=== PATIENT | female | born 1985 | race Caucasian/White ===

== ENCOUNTER 2019-02-21 13:17 | Emergency (ER) | payer OTHER ==
--- NOTE | 2019-02-21 16:14 | EDM.PDOC ---
<Yasmin Nixon - Last Filed: 02/21/19 17:40> ED HPI GENERAL MEDICAL PROBLEM - General Chief Complaint: Lower Extremity Injury/Pain Stated Complaint: CALF PAIN Time Seen by Provider: 02/21/19 16:00 Source of Information: Reports: Patient History Limitations: Reports: No Limitations - History of Present Illness INITIAL COMMENTS - FREE TEXT/NARRATIVE: Patient arrives to ER with CC of increased pain and swelling to right foot/ ankle. Patient has an extensive surgical history to this foot, including a bone graft that was rejected. Patient is set to see orthopedic doctor next week for reevaluation of patient's care plan. Patient states that for the past 4 days she has been having a significant increase in her pain, not associated with any particular activity as well as edema that is not precipitated by any certain activity or dependent position. Patient reports that her pain is not being adequately controlled by her currently prescribed Oxy/APAP 5/325 mg prescription. Patient denies any fever, chills, redness, or new onset trauma to this foot. Patient does have previous history of DVT to her right lower extremity. Patient did report her symptoms to her orthopedic doctor, however she was unable to see her right away and directed her to the emergency room. Onset Date: 02/18/19 Location: Reports: Lower Extremity, Right (foot/ankle) Quality: Reports: Sharp Severity: Severe Improves with: Reports: None Worsens with: Reports: Movement Context: Reports: Other (s/p multiple surgical corrections) Associated Symptoms: Reports: No Other Symptoms Right Foot Pain Score (Numeric/FACES): 9 - Related Data Allergies Allergy/AdvReac Type Severity Reaction Status Date / Time doxycycline Allergy Rash Verified 02/21/19 15:38 Home Meds: Home Meds SUMAtriptan 100 mg PO ONETIME 04/21/18 [History] oxyCODONE HCl/Acetaminophen [Oxycodone-Acetaminophen 5-325] 1 tab PO ASDIRECTED PRN 04/21/18 [History] Gabapentin [Neurontin] 300 mg PO TID 02/21/19 [History] Sertraline [Zoloft] 100 mg PO DAILY 02/21/19 [History] busPIRone [Buspar] 10 mg PO BID 02/21/19 [History] Past Medical History HEENT History: Reports: Impaired Vision Other HEENT History: wears glasses Cardiovascular History: Reports: Blood Clots/VTE/DVT Respiratory History: Reports: None Gastrointestinal History: Reports: None Genitourinary History: Reports: None 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 Musculoskeletal History: Reports: Back Pain, Chronic Neurological History: Reports: Migraines Psychiatric History: Reports: Anxiety Endocrine/Metabolic History: Reports: Obesity/BMI 30+ Hematologic History: Reports: None Immunologic History: Reports: None Oncologic (Cancer) History: Reports: None Dermatologic History: Reports: None - Infectious Disease History Infectious Disease History: Reports: Chicken Pox - Past Surgical History Head Surgeries/Procedures: Reports: None Musculoskeletal Surgical History: Reports: Other (See Below) Other Musculoskeletal Surgeries/Procedures:: 5 surgeries on right foot Social & Family History - Family History Family Medical History: Noncontributory - Tobacco Use Smoking Status *Q: Current Every Day Smoker Years of Tobacco use: 14 Packs/Tins Daily: 0.2 - Caffeine Use Caffeine Use: Reports: Coffee, Soda - Recreational Drug Use Recreational Drug Use: No - Living Situation & Occupation Living situation: Reports: Single Occupation: Employed Review of Systems - Review of Systems Review Of Systems: ROS reveals no pertinent complaints other than HPI. ED EXAM, GENERAL - Physical Exam Exam: See Below Exam Limited By: No Limitations General Appearance: Alert, WD/WN, No Apparent Distress Respiratory/Chest: No Respiratory Distress, Lungs Clear, Normal Breath Sounds, No Accessory Muscle Use, Chest Non-Tender Cardiovascular: Normal Peripheral Pulses, Regular Rate, Rhythm, No Edema, No Gallop, No JVD, No Murmur, No Rub GI/Abdominal: Normal Bowel Sounds, Soft, Non-Tender, No Organomegaly, No Distention, No Abnormal Bruit, No Mass Back Exam: Normal Inspection, Full Range of Motion, NT Extremities: No Pedal Edema, Normal Capillary Refill, Leg Pain, Other (CMS intact). No: Normal Inspection (moderate amount of edema to generalized right foot/ankle), Normal Range of Motion (decreased ROM to right foot d/t pain), Non- Tender Neurological: Alert, Oriented, CN II-XII Intact, Normal Cognition, Normal Gait, Normal Reflexes, No Motor/Sensory Deficits Psychiatric: Tearful Skin Exam: Warm, Dry, Intact, Normal Color, No Rash Course - Vital Signs Last Recorded V/S: Last Vital Signs Temp 99.3 F 02/21/19 15:30 Pulse 91 02/21/19 15:30 Resp 18 02/21/19 15:30 BP 130/86 02/21/19 15:30 Pulse Ox 100 02/21/19 15:30 - Orders/Labs/Meds Orders: Active Orders 24 hr Category Date Time Status Foot Comp Min 3V Rt [CR] Urgent Exams 02/21/19 16:06 Taken Venous Doppler Lwr Ext Rt [US] Urgent Exams 02/21/19 16:08 Taken Meds: Medications Discontinued Medications Generic Name Dose Route Start Last Admin Trade Name Reji PRN Reason Stop Dose Admin Ketorolac Tromethamine 60 mg 02/21/19 17:19 02/21/19 17:26 Toradol IM 02/21/19 17:20 60 mg ONETIME ONE Administration - Radiology Interpretation Free Text/Narrative:: 3V Right Foot XRAY: Postoperative changes of the second and third metatarsals present with plate and screws in place. No evidence of complications. There is no evidence of acute fracture. Mild soft tissue swelling is present. See rad report. Right Venous Ultrasound: No evidence of acute DVT. Prominent lymph node noted within the right inguinal canal. See rad report. Departure - Departure Time of Disposition: 17:36 Disposition: Home, Self-Care 01 Condition: Good Clinical Impression: Soft tissue injury of right lower leg Qualifiers: Encounter type: initial encounter Qualified Code(s): S89.91XA - Unspecified injury of right lower leg, initial encounter - Discharge Information *PRESCRIPTION DRUG MONITORING PROGRAM REVIEWED*: No *COPY OF PRESCRIPTION DRUG MONITORING REPORT IN PATIENT DESI: No Instructions: Contusion, [id number] Forms: ED Department Discharge Additional Instructions: You had an XRAY and Ultrasound done on your right lower extremity today in the emergency room. Both of these images came back negative for any acute concern. There is evidence of some soft tissue swelling. You were given 60 mg IM Toradol in the emergency room as well. Rest, Ice, Compression, Elevation of the affected extremity. You can fiber picker a compression stocking at [facility] to assist in the swelling. Continue to use your prescribed pain medication as you have been directed per prescribing provider. *Do not drive while under the influence of this medication * Attend your follow up appointment that is scheduled with your orthopedic doctor. <Ganga Rodriguez - Last Filed: 02/21/19 17:41> Course - Re-Assessments/Exams Free Text/Narrative Re-Assessment/Exam: 02/21/19 17:41 I personally performed or re-performed the physical examination and medical decision making. I have verified all student documentation or findings, including history, physical exam and/or medical decision making.
[2019-02-21] MEDS ORDERED: Ketorolac 30 MG/ML SDV IM ONE (17:19)
== END 2019-02-21 17:48 | disposition home or self-care (01) ==
LOC: DL.ED 13:17
DX: S89.91XA Unspecified injury of right lower leg, initial encounter (principal); F41.9 Anxiety disorder, unspecified; E66.9 Obesity, unspecified; F17.210 Nicotine dependence, cigarettes, uncomplicated; Z86.718 Personal history of other venous thrombosis and embolism; Z88.8 Allergy status to other drugs, medicaments and biological substances; Z79.899 Other long term (current) drug therapy; X58.XXXA Exposure to other specified factors, initial encounter
CPT/HCPCS: 73630; 93971; 96372; 99284; J1885

== ENCOUNTER 2019-05-31 13:06 | Emergency (ER) | payer OTHER ==
--- NOTE | 2019-05-31 13:40 | EDM.PDOC ---
ED HPI GENERAL MEDICAL PROBLEM - General Chief Complaint: Headache Stated Complaint: MIGRAINE Time Seen by Provider: 05/31/19 13:40 Source of Information: Reports: Patient, RN, RN Notes Reviewed History Limitations: Reports: No Limitations - History of Present Illness INITIAL COMMENTS - FREE TEXT/NARRATIVE: Pt to ER with c/o migraine headache. She states she has a history of migraines and has been dealing with this headache the whole past week. States she has been in to the clinic and gotten shots of Toradol and IV fluids, and has been taking Sumatriptan at home without relief. She states it has gotten to the point that she cannot function. Patient admits to aura, nausea, light and sound sensitivity. States she does have a call in to her neurologist but has not heard back. Denies chances of . 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 NURSE: Reports: Acetaminophen, NSAIDS, Other Medication(s) Headache Pain Score (Numeric/FACES): 9 - Related Data Allergies Allergy/AdvReac Type Severity Reaction Status Date / Time doxycycline Allergy Rash Verified 05/31/19 13:14 Home Meds: Home Meds SUMAtriptan 100 mg PO ONETIME 04/21/18 [History] Gabapentin [Neurontin] 300 mg PO TID 02/21/19 [History] Sertraline [Zoloft] 150 mg PO DAILY 02/21/19 [History] busPIRone [Buspar] 10 mg PO BID 02/21/19 [History] Topiramate [Topamax] 25 mg PO DAILY 05/22/19 [History] Metoclopramide HCl [Reglan] 10 mg PO Q4H PRN 05/31/19 [History] Past Medical History HEENT History: Reports: Impaired Vision Other HEENT History: wears glasses Cardiovascular History: Reports: Blood Clots/VTE/DVT Respiratory History: Reports: None Gastrointestinal History: Reports: None Genitourinary History: Reports: None 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 Musculoskeletal History: Reports: Back Pain, Chronic Neurological History: Reports: Migraines Psychiatric History: Reports: Anxiety Endocrine/Metabolic History: Reports: Obesity/BMI 30+ Hematologic History: Reports: None Immunologic History: Reports: None Oncologic (Cancer) History: Reports: None Dermatologic History: Reports: None - Infectious Disease History Infectious Disease History: Reports: Chicken Pox - Past Surgical History Head Surgeries/Procedures: Reports: None Musculoskeletal Surgical History: Reports: Other (See Below) Other Musculoskeletal Surgeries/Procedures:: 5 surgeries on right foot Social & Family History - Family History Family Medical History: Noncontributory - Tobacco Use Smoking Status *Q: Current Some Day Smoker Years of Tobacco use: 2 Packs/Tins Daily: 0.1 - Caffeine Use Caffeine Use: Reports: Soda - Recreational Drug Use Recreational Drug Use: No - Living Situation & Occupation Living situation: Reports: Single Occupation: Employed ED ROS GENERAL - Review of Systems Review Of Systems: ROS reveals no pertinent complaints other than HPI. - Physical Exam Exam: See Below Exam Limited By: No Limitations General Appearance: Alert, WD/WN, Moderate Distress Eye Exam: Bilateral Eye: EOMI, Normal Inspection Ears: Normal External Exam, Hearing Grossly Normal Nose: Normal Inspection Throat/Mouth: Normal Inspection, Normal Voice, No Airway Compromise Head Exam: Atraumatic, Normocephalic Neck: Normal Inspection, Supple, Non-Tender, Full Range of Motion Respiratory/Chest: No Respiratory Distress, Lungs Clear, Normal Breath Sounds, No Accessory Muscle Use, Chest Non-Tender Cardiovascular: Normal Peripheral Pulses, Regular Rate, Rhythm, No Edema, No Gallop, No JVD, No Murmur, No Rub GI/Abdominal: Normal Bowel Sounds, Soft, Non-Tender, No Organomegaly, No Distention, No Abnormal Bruit, No Mass (Female) Exam: Deferred Rectal (Female) Exam: Deferred Neuro Exam (Abbreviated): Alert, Oriented, CN II-XII Intact, Normal Cognition, Normal Gait, Normal Reflexes, No Motor/Sensory Deficits Back Exam: Normal Inspection, Full Range of Motion Extremities: Normal Inspection, Normal Range of Motion, Non-Tender, No Pedal Edema, Normal Capillary Refill Psychiatric: Normal Affect, Depressed Mood, Tearful Skin Exam: Warm, Dry, Intact, Normal Color, No Rash Course - Vital Signs Last Recorded V/S: Last Vital Signs Temp 97.1 F 05/31/19 13:16 Pulse 88 05/31/19 13:16 Resp 16 05/31/19 13:16 BP 132/91 H 05/31/19 13:16 Pulse Ox 100 05/31/19 13:16 - Orders/Labs/Meds Orders: Active Orders 24 hr Category Date Time Status Peripheral IV Care [RC] . DIRECTED Care 05/31/19 13:45 Active Sodium Chloride 0.9% [Saline Flush] Med 05/31/19 13:44 Active 10 ml FLUSH ASDIRECTED PRN Peripheral IV Insertion Adult [OM.PC] Stat Oth 05/31/19 13:44 Ordered Medication Orders Sodium Chloride (Saline Flush) 10 ml FLUSH ASDIRECTED PRN PRN Reason: Keep Vein Open Last Admin: 05/31/19 14:47 Dose: 10 ml Admin: 05/31/19 13:54 Dose: 10 ml Meds: Medications Generic Name Dose Route Start Last Admin Trade Name Freq PRN Reason Stop Dose Admin Sodium Chloride 10 ml 05/31/19 13:44 05/31/19 14:47 Saline Flush FLUSH 10 ml ASDIRECTED PRN Administration Keep Vein Open Discontinued Medications Generic Name Dose Route Start Last Admin Trade Name Freq PRN Reason Stop Dose Admin Butorphanol Tartrate 2 mg 05/31/19 14:33 05/31/19 14:45 Stadol IVPUSH 05/31/19 14:34 2 mg ONETIME ONE Administration Diphenhydramine HCl 25 mg 05/31/19 13:44 05/31/19 13:54 Benadryl IVPUSH 05/31/19 13:45 25 mg ONETIME ONE Administration Sodium Chloride 1,000 mls @ 999 mls/hr 05/31/19 13:44 05/31/19 13:54 Normal Saline IV 05/31/19 14:44 999 mls/hr .BOLUS ONE Administration Ondansetron HCl 4 mg 05/31/19 13:44 05/31/19 13:54 Zofran IV 05/31/19 13:45 4 mg ONETIME ONE Administration Promethazine HCl 25 mg 05/31/19 14:33 05/31/19 14:43 Phenergan IM 05/31/19 14:34 25 mg ONETIME ONE Administration - Re-Assessments/Exams Free Text/Narrative Re-Assessment/Exam: 05/31/19 14:35 Patient states the Benadryl and Zofran have not worked at all. Patient states she feels she is going to throw up. Departure - Departure Time of Disposition: 15:09 Disposition: Home, Self-Care 01 Condition: Fair Clinical Impression: Migraine - Discharge Information *PRESCRIPTION DRUG MONITORING PROGRAM REVIEWED*: No *COPY OF PRESCRIPTION DRUG MONITORING REPORT IN PATIENT DESI: No Instructions: Migraine Headache, [id number], Recurrent Migraine Headache, [id number] Forms: ED Department Discharge Additional Instructions: Drink plenty of fluids Continue using home meds as directed Follow up with your primary care facility and neurology - My Orders Last 24 Hours: My Active Orders 05/31/19 13:44 Sodium Chloride 0.9% [Saline Flush] 10 ml FLUSH ASDIRECTED PRN Peripheral IV Insertion Adult [OM.PC] Stat 05/31/19 13:45 Peripheral IV Care [RC] . DIRECTED - Assessment/Plan Last 24 Hours: My Active Orders 05/31/19 13:44 Sodium Chloride 0.9% [Saline Flush] 10 ml FLUSH ASDIRECTED PRN Peripheral IV Insertion Adult [OM.PC] Stat 05/31/19 13:45 Peripheral IV Care [RC] . DIRECTED
[2019-05-31] MEDS ORDERED: Ondansetron 4 MG/2 ML SDV IV ONE (13:44)
[2019-05-31] MEDS ORDERED: diphenhydrAMINE 50 MG/ML SDV IVPUSH ONE (13:44)
[2019-05-31] MEDS ORDERED: Sodium Chloride 0.9% 1,000 ML IV ONE (13:44)
[2019-05-31] MEDS: Sodium Chloride 0.9% 10 ML Syringe FLUSH PRN ×2 (13:54→14:47)
[2019-05-31] MEDS ORDERED: Butorphanol 2 MG/ML SDV IVPUSH ONE (14:33)
[2019-05-31] MEDS ORDERED: Promethazine 25 MG/ML SDV IM ONE (14:33)
== END 2019-05-31 15:17 | disposition home or self-care (01) ==
LOC: DL.ED 13:06
DX: G43.909 Migraine, unspecified, not intractable, without status migrainosus (principal); E66.9 Obesity, unspecified; F41.9 Anxiety disorder, unspecified; F17.210 Nicotine dependence, cigarettes, uncomplicated; Z79.899 Other long term (current) drug therapy
CPT/HCPCS: 96361; 96372; 96374; 96375; 99283; J0595; J1200; J2405; J2550; J7030

== ENCOUNTER 2019-05-31 19:47 | Emergency (ER) | payer OTHER ==
[2019-05-31] MEDS ORDERED: LORazepam 1 MG Tab PO ONE (19:48)
[2019-05-31] MEDS ORDERED: Butorphanol 2 MG/ML SDV IM ONE (20:27)
[2019-05-31] MEDS ORDERED: Promethazine 25 MG/ML SDV IM ONE (20:27)
--- NOTE | 2019-05-31 20:32 | EDM.PDOC ---
ED HPI GENERAL MEDICAL PROBLEM - General Chief Complaint: Headache Stated Complaint: MIGRAINE Time Seen by Provider: 05/31/19 20:28 Source of Information: Reports: Patient History Limitations: Reports: No Limitations - History of Present Illness INITIAL COMMENTS - FREE TEXT/NARRATIVE: was here earlier and usually if able to sleep her migraine cycle will break but tis time not working well. has Neuro appt. next week. Headache Pain Score (Numeric/FACES): 9 - Related Data Allergies Allergy/AdvReac Type Severity Reaction Status Date / Time doxycycline Allergy Rash Verified 05/31/19 20:19 Home Meds: Home Meds SUMAtriptan 100 mg PO ONETIME 04/21/18 [History] Gabapentin [Neurontin] 300 mg PO TID 02/21/19 [History] Sertraline [Zoloft] 150 mg PO DAILY 02/21/19 [History] busPIRone [Buspar] 10 mg PO BID 02/21/19 [History] Topiramate [Topamax] 25 mg PO DAILY 05/22/19 [History] Metoclopramide HCl [Reglan] 10 mg PO Q4H PRN 05/31/19 [History] Past Medical History HEENT History: Reports: Impaired Vision Other HEENT History: wears glasses Cardiovascular History: Reports: Blood Clots/VTE/DVT Respiratory History: Reports: None Gastrointestinal History: Reports: None Genitourinary History: Reports: None 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 History: Reports: 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 Musculoskeletal History: Reports: Back Pain, Chronic Neurological History: Reports: Migraines Psychiatric History: Reports: Anxiety Endocrine/Metabolic History: Reports: Obesity/BMI 30+ Hematologic History: Reports: None Immunologic History: Reports: None Oncologic (Cancer) History: Reports: None Dermatologic History: Reports: None - Infectious Disease History Infectious Disease History: Reports: Chicken Pox - Past Surgical History Head Surgeries/Procedures: Reports: None Musculoskeletal Surgical History: Reports: Other (See Below) Other Musculoskeletal Surgeries/Procedures:: 5 surgeries on right foot Social & Family History - Family History Family Medical History: Noncontributory - Tobacco Use Smoking Status *Q: Light Tobacco Smoker Years of Tobacco use: 1 Packs/Tins Daily: 0.1 Tobacco Use Comment: has a rare cigarette, states is not a daily smoker Second Hand Smoke Exposure: Yes - Caffeine Use Caffeine Use: Reports: Soda - Recreational Drug Use Recreational Drug Use: No - Living Situation & Occupation Living situation: Reports: Single Occupation: Employed ED ROS GENERAL - Review of Systems Review Of Systems: ROS reveals no pertinent complaints other than HPI. - Physical Exam Exam: See Below Exam Limited By: No Limitations General Appearance: Alert, WD/WN, Mild Distress, Other (tearful) Eye Exam: Bilateral Eye: PERRL (pupils ER @ 4mm) Ears: Hearing Grossly Normal Throat/Mouth: Normal Voice, No Airway Compromise Head Exam: Atraumatic Neck: Non-Tender, Full Range of Motion Respiratory/Chest: No Respiratory Distress Cardiovascular: Regular Rate, Rhythm GI/Abdominal: Soft, Non-Tender Neuro Exam (Abbreviated): Alert, Oriented, Normal Cognition, Normal Gait, No Motor/Sensory Deficits Psychiatric: Tearful Skin Exam: Warm, Dry, Normal Color Course - Vital Signs Last Recorded V/S: Last Vital Signs Temp 36.4 C 05/31/19 20:57 Pulse 78 05/31/19 20:57 Resp 18 05/31/19 20:57 BP 134/89 05/31/19 20:57 Pulse Ox 98 05/31/19 20:57 - Orders/Labs/Meds Meds: Medications Discontinued Medications Generic Name Dose Route Start Last Admin Trade Name Freq PRN Reason Stop Dose Admin Butorphanol Tartrate 2 mg 05/31/19 20:27 05/31/19 20:39 Stadol IM 05/31/19 20:28 2 mg ONETIME ONE Administration Lorazepam Confirm 05/31/19 20:54 05/31/19 20:57 Ativan Administered 05/31/19 20:55 Not Given Dose 1 mg .ROUTE .STK-MED ONE Promethazine HCl 25 mg 05/31/19 20:27 05/31/19 20:38 Phenergan IM 05/31/19 20:28 25 mg ONETIME ONE Administration Departure - Departure Time of Disposition: 20:55 Disposition: Home, Self-Care 01 Condition: Good Clinical Impression: Migraine Qualifiers: Migraine type: unspecified Status migrainosus presence: with status migrainosus Intractability: not intractable Qualified Code(s): G43.901 - Migraine, unspecified, not intractable, with status migrainosus - Discharge Information Referrals: Phoebe Diaz MD [Primary Care Provider] - Forms: ED Department Discharge Additional Instructions: 1) rest 2) follow up at clinic rx togo; ativan 1mg x 1
[2019-05-31] MEDS ORDERED: LORazepam 1 MG Tab ONE (20:54)
== END 2019-05-31 20:57 | disposition home or self-care (01) ==
LOC: DL.ED 19:47
DX: G43.901 Migraine, unspecified, not intractable, with status migrainosus (principal); F17.210 Nicotine dependence, cigarettes, uncomplicated; F41.9 Anxiety disorder, unspecified; E66.9 Obesity, unspecified; Z68.41 Body mass index [BMI] 40.0-44.9, adult; Z79.899 Other long term (current) drug therapy; Z88.1 Allergy status to other antibiotic agents
CPT/HCPCS: 96372; 99283; J0595; J2550; A9270-GY

== ENCOUNTER 2019-06-04 15:04 | Emergency (ER) | payer OTHER ==
[2019-06-04] MEDS ORDERED: Sodium Chloride 0.9% 1,000 ML IV ONE (15:24)
[2019-06-04] MEDS ORDERED: LORazepam 2 MG/ML Syringe IVPUSH ONE (15:24)
[2019-06-04] MEDS ORDERED: Butorphanol 2 MG/ML SDV IVPUSH ONE (15:25)
[2019-06-04] MEDS ORDERED: Sodium Chloride 0.9% 10 ML Syringe FLUSH PRN (15:25)
[2019-06-04] MEDS ORDERED: Promethazine 25 MG/ML SDV IM ONE (15:26)
--- NOTE | 2019-06-04 15:27 | EDM.PDOC ---
ED HPI GENERAL MEDICAL PROBLEM - General Chief Complaint: Headache Stated Complaint: MIGRAINE Time Seen by Provider: 06/04/19 15:20 Source of Information: Reports: Patient, RN, RN Notes Reviewed History Limitations: Reports: No Limitations - History of Present Illness INITIAL COMMENTS - FREE TEXT/NARRATIVE: Pt to ER with c/o headache. Patient states she has had a headache for several days. States she has been seen in the clinic and ER several times for pain control. States she was dx with West Nile in April and feels this headaches stems from that. She states her neurologist has tried different medications without help. States she has an appointment with neurology on Tuesday. States if she can sleep the pain improves. Patient denies chances of . Admits to nausea, light and sound sensitivity. Onset: Gradual Duration: Constant, Getting Worse Location: Reports: Head Headache Pain Score (Numeric/FACES): 6 - Related Data Allergies Allergy/AdvReac Type Severity Reaction Status Date / Time doxycycline Allergy Rash Verified 06/04/19 15:38 Home Meds: Home Meds Gabapentin [Neurontin] 300 mg PO TID 02/21/19 [History] Sertraline [Zoloft] 150 mg PO DAILY 02/21/19 [History] busPIRone [Buspar] 10 mg PO BID 02/21/19 [History] Topiramate [Topamax] 25 mg PO DAILY 05/22/19 [History] Metoclopramide HCl [Reglan] 10 mg PO Q4H PRN 05/31/19 [History] Rizatriptan Benzoate [Rizatriptan] 100 mg PO 06/04/19 [History] Past Medical History HEENT History: Reports: Impaired Vision Other HEENT History: wears glasses Cardiovascular History: Reports: Blood Clots/VTE/DVT Respiratory History: Reports: None Gastrointestinal History: Reports: None Genitourinary History: Reports: None 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 Musculoskeletal History: Reports: Back Pain, Chronic Neurological History: Reports: Migraines Psychiatric History: Reports: Anxiety Endocrine/Metabolic History: Reports: Obesity/BMI 30+ Hematologic History: Reports: None Immunologic History: Reports: None Oncologic (Cancer) History: Reports: None Dermatologic History: Reports: None - Infectious Disease History Infectious Disease History: Reports: Chicken Pox - Past Surgical History Head Surgeries/Procedures: Reports: None GI Surgical History: Reports: Bariatric Procedure, Cholecystectomy Musculoskeletal Surgical History: Reports: Other (See Below) Other Musculoskeletal Surgeries/Procedures:: 5 surgeries on right foot Social & Family History - Family History Family Medical History: Noncontributory - Tobacco Use Smoking Status *Q: Never Smoker Second Hand Smoke Exposure: No - Caffeine Use Caffeine Use: Reports: Soda - Recreational Drug Use Recreational Drug Use: No - Living Situation & Occupation Living situation: Reports: Single Occupation: Employed ED ROS GENERAL - Review of Systems Review Of Systems: ROS reveals no pertinent complaints other than HPI. - Physical Exam Exam: See Below Exam Limited By: No Limitations General Appearance: Alert, WD/WN, Moderate Distress Eye Exam: Bilateral Eye: Normal Inspection, PERRL (3 brisk) Ears: Normal External Exam, Hearing Grossly Normal Nose: Normal Inspection Throat/Mouth: Normal Inspection, Normal Voice, No Airway Compromise Head Exam: Atraumatic, Normocephalic Neck: Normal Inspection, Supple, Non-Tender, Full Range of Motion Respiratory/Chest: No Respiratory Distress, Lungs Clear, Normal Breath Sounds, No Accessory Muscle Use, Chest Non-Tender Cardiovascular: Normal Peripheral Pulses, Regular Rate, Rhythm, No Edema, No Gallop, No JVD, No Murmur, No Rub GI/Abdominal: Normal Bowel Sounds, Soft, Non-Tender, No Organomegaly, No Distention, No Abnormal Bruit, No Mass (Female) Exam: Deferred Rectal (Female) Exam: Deferred Neuro Exam (Abbreviated): Alert, Oriented, CN II-XII Intact, Normal Cognition, Normal Gait, Normal Reflexes, No Motor/Sensory Deficits Back Exam: Normal Inspection, Full Range of Motion, NT Extremities: Normal Inspection, Normal Range of Motion, Non-Tender, No Pedal Edema, Normal Capillary Refill Psychiatric: Normal Affect, Normal Mood, Anxious, Tearful Skin Exam: Warm, Dry, Intact, Normal Color, No Rash Course - Vital Signs Last Recorded V/S: Last Vital Signs Temp 97.2 F 06/04/19 15:09 Pulse 90 06/04/19 15:09 Resp 16 06/04/19 15:09 BP Pulse Ox 100 06/04/19 15:09 - Orders/Labs/Meds Orders: Active Orders 24 hr Category Date Time Status Peripheral IV Care [RC] . DIRECTED Care 06/04/19 15:26 Active Peripheral IV Insertion Adult [OM.PC] Stat Oth 06/04/19 15:24 Ordered Meds: Medications Discontinued Medications Generic Name Dose Route Start Last Admin Trade Name Freq PRN Reason Stop Dose Admin Butorphanol Tartrate 2 mg 06/04/19 15:25 06/04/19 15:36 Stadol IVPUSH 06/04/19 15:26 2 mg ONETIME ONE Administration Sodium Chloride 1,000 mls @ 999 mls/hr 06/04/19 15:24 06/04/19 15:35 Normal Saline IV 06/04/19 16:24 999 mls/hr .BOLUS ONE Administration Lorazepam 1 mg 06/04/19 15:24 06/04/19 15:37 Ativan IVPUSH 06/04/19 15:25 1 mg ONETIME ONE Administration Promethazine HCl 25 mg 06/04/19 15:26 06/04/19 15:35 Phenergan IM 06/04/19 15:27 25 mg ONETIME ONE Administration Sodium Chloride 10 ml 06/04/19 15:25 06/04/19 15:35 Saline Flush FLUSH 10 ml ASDIRECTED PRN Administration Keep Vein Open Departure - Departure Time of Disposition: 19:26 Disposition: Home, Self-Care 01 Condition: Fair Clinical Impression: Migraine Qualifiers: Migraine type: unspecified Status migrainosus presence: with status migrainosus Intractability: intractable Qualified Code(s): G43.911 - Migraine, unspecified, intractable, with status migrainosus - Discharge Information *PRESCRIPTION DRUG MONITORING PROGRAM REVIEWED*: No *COPY OF PRESCRIPTION DRUG MONITORING REPORT IN PATIENT DESI: No Instructions: Migraine Headache, [id number], Recurrent Migraine Headache, [id number] Forms: ED Department Discharge Additional Instructions: Drink plenty of fluids RX: Lorazepam for sleep Follow up with your Neurologist and primary care provider - My Orders Last 24 Hours: My Active Orders 06/04/19 15:24 Peripheral IV Insertion Adult [OM.PC] Stat 06/04/19 15:26 Peripheral IV Care [RC] . DIRECTED - Assessment/Plan Last 24 Hours: My Active Orders 06/04/19 15:24 Peripheral IV Insertion Adult [OM.PC] Stat 06/04/19 15:26 Peripheral IV Care [RC] . DIRECTED
== END 2019-06-04 16:33 | disposition home or self-care (01) ==
LOC: DL.ED 15:04
DX: G43.911 Migraine, unspecified, intractable, with status migrainosus (principal); F41.9 Anxiety disorder, unspecified; E66.9 Obesity, unspecified; Z68.41 Body mass index [BMI] 40.0-44.9, adult; Z86.718 Personal history of other venous thrombosis and embolism; Z90.49 Acquired absence of other specified parts of digestive tract; Z88.8 Allergy status to other drugs, medicaments and biological substances; Z79.899 Other long term (current) drug therapy
CPT/HCPCS: 96361; 96372; 96374; 96375; 99283; J0595; J2060; J2550; J7030

== ENCOUNTER 2019-06-18 22:43 | Emergency (ER) | payer OTHER ==
[2019-06-19] MEDS ORDERED: Ondansetron 4 MG/2 ML SDV IV ONE (01:21)
[2019-06-19] MEDS ORDERED: Sodium Chloride 0.9% 1,000 ML IV ONE (01:21)
[2019-06-19] MEDS ORDERED: Ketorolac 30 MG/ML SDV IVPUSH ONE (01:21)
[2019-06-19] MEDS ORDERED: diphenhydrAMINE 50 MG/ML SDV IVPUSH ONE (01:21)
[2019-06-19] MEDS ORDERED: HYDROmorphone 1 MG/ML Syringe IVPUSH ONE (01:52)
[2019-06-19 01:55] LABS: ANION GAP 14.5; CHLORIDE,CL 105 mmol/L (101-111); SODIUM,NA 135 mmol/L (135-145)
[2019-06-19] MEDS ORDERED: Promethazine 25 MG/ML SDV IM ONE (02:19)
[2019-06-19] MEDS ORDERED: Butorphanol 2 MG/ML SDV IVPUSH ONE (02:49)
--- NOTE | 2019-06-19 03:24 | EDM.PDOC ---
ED HPI GENERAL MEDICAL PROBLEM - General Chief Complaint: Headache Stated Complaint: MIGRAINE Time Seen by Provider: 06/18/19 23:40 Source of Information: Reports: Patient History Limitations: Reports: No Limitations - History of Present Illness INITIAL COMMENTS - FREE TEXT/NARRATIVE: ED with c/o migraine headache to top of head ressure type, noauea no vomiting. Sensitive to light. No urinary symptoms.Take 2 doses maxalt and reglan every 4 hours without relief. Decreased oral intake, No fever or chills. Hx WNV in April almost daily headaches since today worse than usual. Headache Pain Score (Numeric/FACES): 9 - Related Data Allergies Allergy/AdvReac Type Severity Reaction Status Date / Time doxycycline Allergy Rash Verified 06/18/19 23:38 Home Meds: Home Meds Gabapentin [Neurontin] 300 mg PO TID 02/21/19 [History] Sertraline [Zoloft] 150 mg PO DAILY 02/21/19 [History] busPIRone [Buspar] 10 mg PO BID 02/21/19 [History] Topiramate [Topamax] 25 mg PO DAILY 05/22/19 [History] Metoclopramide HCl [Reglan] 10 mg PO Q4H PRN 05/31/19 [History] Rizatriptan Benzoate [Rizatriptan] 100 mg PO 06/04/19 [History] Past Medical History HEENT History: Reports: Impaired Vision Other HEENT History: wears glasses Cardiovascular History: Reports: Blood Clots/VTE/DVT Respiratory History: Reports: None Gastrointestinal History: Reports: None Genitourinary History: Reports: None 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 Musculoskeletal History: Reports: Back Pain, Chronic Neurological History: Reports: Migraines Psychiatric History: Reports: Anxiety Endocrine/Metabolic History: Reports: Obesity/BMI 30+ Hematologic History: Reports: None Immunologic History: Reports: None Oncologic (Cancer) History: Reports: None Dermatologic History: Reports: None - Infectious Disease History Infectious Disease History: Reports: Chicken Pox - Past Surgical History Head Surgeries/Procedures: Reports: None GI Surgical History: Reports: Bariatric Procedure, Cholecystectomy Musculoskeletal Surgical History: Reports: Other (See Below) Other Musculoskeletal Surgeries/Procedures:: 5 surgeries on right foot Social & Family History - Family History Family Medical History: Noncontributory - Tobacco Use Smoking Status *Q: Never Smoker Second Hand Smoke Exposure: No - Caffeine Use Caffeine Use: Reports: Soda - Recreational Drug Use Recreational Drug Use: No - Living Situation & Occupation Living situation: Reports: Single Occupation: Employed ED ROS GENERAL - Review of Systems Review Of Systems: ROS reveals no pertinent complaints other than HPI. - Physical Exam Exam: See Below Exam Limited By: No Limitations General Appearance: Alert, Anxious, Mild Distress Eye Exam: Bilateral Eye: EOMI Ears: Normal External Exam Nose: Normal Inspection Throat/Mouth: Normal Inspection Head Exam: Atraumatic, Normocephalic Neck: Normal Inspection, Full Range of Motion Respiratory/Chest: No Respiratory Distress, Lungs Clear, Normal Breath Sounds Cardiovascular: Normal Peripheral Pulses, Regular Rate, Rhythm GI/Abdominal: Normal Bowel Sounds, Soft, Non-Tender Neuro Exam (Abbreviated): Alert, Oriented, Normal Cognition, No Motor/Sensory Deficits Back Exam: Normal Inspection Extremities: Normal Inspection, Normal Range of Motion Psychiatric: Normal Affect Skin Exam: Warm, Dry, Intact, Normal Color Course - Vital Signs Last Recorded V/S: Last Vital Signs Temp 97.9 F 06/19/19 03:25 Pulse 93 06/19/19 03:25 Resp 18 06/19/19 03:25 BP 90/66 06/19/19 03:25 Pulse Ox 100 06/19/19 03:25 - Orders/Labs/Meds Orders: Active Orders 24 hr Category Date Time Status Head wo Cont [CT] Urgent Exams 06/19/19 02:50 Ordered Labs: Laboratory Tests 06/19/19 06/19/19 06/19/19 Range/Units 01:30 01:30 02:30 WBC 8.2 (5.0-10.0) 10^3/uL RBC 3.80 L (4.2-5.4) 10^6/uL Hgb 12.0 (12.0-16.0) g/dL Hct 35.6 L (37.0-47.0) % MCV 93.7 (80-100) fL MCH 31.6 (27.0-34.0) pg MCHC 33.7 (33.0-35.0) g/dL Plt Count 184 (150-450) 10^3/uL Neut % (Auto) 56.5 (42.2-75.2) % Lymph % (Auto) 31.9 (20.5-50.1) % [place] % (Auto) 8.8 H (2-8) % Eos % (Auto) 2.4 (1.0-3.0) % Baso % (Auto) 0.4 (0.0-1.0) % Sodium 135 (135-145) mmol/L Potassium 3.5 L (3.6-5.0) mmol/L Chloride 105 (101-111) mmol/L Carbon Dioxide 19.0 L (21.0-31.0) mmol/L Anion Gap 14.5 BUN 10 (7-18) mg/dL Creatinine 0.7 (0.6-1.3) mg/dL Est Cr Clr Drug Dosing 105.01 mL/min Estimated GFR (MDRD) > 60 BUN/Creatinine Ratio 14.28 Glucose 99 (74-105) mg/dL Calcium 8.5 (8.4-10.2) mg/dl Total Bilirubin 0.4 (0.2-1.0) mg/dL AST 14 (10-42) IU/L ALT 16 (10-60) IU/L Alkaline Phosphatase 41 L (42-121) IU/L Total Protein 6.9 (6.7-8.2) g/dl Albumin 4.2 (3.2-5.5) g/dl Globulin 2.7 Albumin/Globulin Ratio 1.56 Urine Color Yellow (YELLOW) Urine Appearance Slightly cloudy (CLEAR) Urine pH 6.5 (5.0-9.0) Ur Specific [place] 1.025 (1.005-1.030) Urine Protein Negative (NEGATIVE) Urine Glucose (UA) Negative (NEGATIVE) Urine Ketones 40 H (NEGATIVE) Urine Occult Blood Negative (NEGATIVE) Urine Nitrite Negative (NEGATIVE) Urine Bilirubin Small H (NEGATIVE) Urine Urobilinogen 0.2 (0.2-1.0) mg/dL Ur Leukocyte Esterase Negative (NEGATIVE) Urine HCG, Qual 06/19/19 Range/Units 02:30 WBC (5.0-10.0) 10^3/uL RBC (4.2-5.4) 10^6/uL Hgb (12.0-16.0) g/dL Hct (37.0-47.0) % MCV (80-100) fL MCH (27.0-34.0) pg MCHC (33.0-35.0) g/dL Plt Count (150-450) 10^3/uL Neut % (Auto) (42.2-75.2) % Lymph % (Auto) (20.5-50.1) % [place] % (Auto) (2-8) % Eos % (Auto) (1.0-3.0) % Baso % (Auto) (0.0-1.0) % Sodium (135-145) mmol/L Potassium (3.6-5.0) mmol/L Chloride (101-111) mmol/L Carbon Dioxide (21.0-31.0) mmol/L Anion Gap BUN (7-18) mg/dL Creatinine (0.6-1.3) mg/dL Est Cr Clr Drug Dosing mL/min Estimated GFR (MDRD) BUN/Creatinine Ratio Glucose (74-105) mg/dL Calcium (8.4-10.2) mg/dl Total Bilirubin (0.2-1.0) mg/dL AST (10-42) IU/L ALT (10-60) IU/L Alkaline Phosphatase (42-121) IU/L Total Protein (6.7-8.2) g/dl Albumin (3.2-5.5) g/dl Globulin Albumin/Globulin Ratio Urine Color (YELLOW) Urine Appearance (CLEAR) Urine pH (5.0-9.0) Ur Specific [place] (1.005-1.030) Urine Protein (NEGATIVE) Urine Glucose (UA) (NEGATIVE) Urine Ketones (NEGATIVE) Urine Occult Blood (NEGATIVE) Urine Nitrite (NEGATIVE) Urine Bilirubin (NEGATIVE) Urine Urobilinogen (0.2-1.0) mg/dL Ur Leukocyte Esterase (NEGATIVE) Urine HCG, Qual Positive Meds: Medications Discontinued Medications Generic Name Dose Route Start Last Admin Trade Name Freq PRN Reason Stop Dose Admin Butorphanol Tartrate 2 mg 06/19/19 02:49 06/19/19 02:55 Stadol IVPUSH 06/19/19 02:50 2 mg ONETIME ONE Administration Diphenhydramine HCl 25 mg 06/19/19 01:21 06/19/19 01:36 Benadryl IVPUSH 06/19/19 01:22 25 mg ONETIME ONE Administration Hydromorphone HCl 1 mg 06/19/19 01:52 06/19/19 02:03 Dilaudid IVPUSH 06/19/19 01:53 1 mg ONETIME ONE Administration Sodium Chloride 1,000 mls @ 999 mls/hr 06/19/19 01:21 06/19/19 01:36 Normal Saline IV 06/19/19 02:21 999 mls/hr .BOLUS ONE Administration Ketorolac Tromethamine 30 mg 06/19/19 01:21 06/19/19 01:37 Toradol IVPUSH 06/19/19 01:22 30 mg ONETIME ONE Administration Ondansetron HCl 4 mg 06/19/19 01:21 06/19/19 01:37 Zofran IV 06/19/19 01:22 4 mg ONETIME ONE Administration Promethazine HCl 25 mg 06/19/19 02:19 06/19/19 02:33 Phenergan IM 06/19/19 02:20 25 mg ONETIME ONE Administration - Re-Assessments/Exams Free Text/Narrative Re-Assessment/Exam: 06/19/19 07:00 Restless legs from Benadryl. Results of labs including test. Patient symptoms improved prior to discharge, patient stating she feels able to go home and rest. 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 Headache Qualifiers: Headache type: unspecified Headache chronicity pattern: chronic headache Intractability: intractable Qualified Code(s): R51 - Headache Qualifiers: Weeks of gestation: unspecified Qualified Code(s): Z34.90 - Encounter for supervision of normal , unspecified, unspecified trimester - Discharge Information *PRESCRIPTION DRUG MONITORING PROGRAM REVIEWED*: No *COPY OF PRESCRIPTION DRUG MONITORING REPORT IN PATIENT DESI: No Instructions: Migraine Headache, [id number], First Trimester of , [id number] Forms: ED Department Discharge Additional Instructions: increase fluids follow up with neurologist schedule appointment with PCP regarding - My Orders Last 24 Hours: My Active Orders 06/19/19 02:50 Head wo Cont [CT] Urgent - Assessment/Plan Last 24 Hours: My Active Orders 06/19/19 02:50 Head wo Cont [CT] Urgent
== END 2019-06-19 03:33 | disposition home or self-care (01) ==
LOC: DL.ED 22:43
DX: O26.891 Other specified pregnancy related conditions, first trimester (principal); R51 Headache; O99.341 Other mental disorders complicating pregnancy, first trimester; F41.9 Anxiety disorder, unspecified; Z86.19 Personal history of other infectious and parasitic diseases; Z88.1 Allergy status to other antibiotic agents; Z79.899 Other long term (current) drug therapy; Z3A.00 Weeks of gestation of pregnancy not specified
CPT/HCPCS: 36415; 80053; 81003; 81025; 85025; 96361; 96372; 96374; 96375; 99283; J0595; J1170; J1200; J1885; J2405; J2550; J7030

== ENCOUNTER 2019-06-20 23:09 | Emergency (ER) | payer OTHER ==
[2019-06-20] MEDS ORDERED: Sodium Chloride 0.9% 1,000 ML IV ONE (23:25)
[2019-06-20] MEDS ORDERED: Metoclopramide 10 MG/2 ML SDV IVPUSH ONE (23:33)
[2019-06-20] MEDS ORDERED: Butorphanol 2 MG/ML SDV IVPUSH ONE (23:54)
[2019-06-20 23:57] LABS: ANION GAP 12.5; CHLORIDE,CL 110 mmol/L (101-111); SODIUM,NA 140 mmol/L (135-145)
[2019-06-21] MEDS ORDERED: Sodium Chloride 0.9% 1,000 ML IV ONE (00:51)
[2019-06-21] MEDS ORDERED: Promethazine 25 MG/ML SDV IM ONE (00:51)
[2019-06-21] MEDS ORDERED: methylPREDNISolone Sodium Succinate 125 MG/2 ML SDV IVPUSH ONE (01:25)
[2019-06-21] MEDS ORDERED: HYDROmorphone 1 MG/ML Syringe IVPUSH ONE (01:25)
--- NOTE | 2019-06-21 02:31 | EDM.PDOC ---
ED HPI GENERAL MEDICAL PROBLEM - General Chief Complaint: Headache Stated Complaint: MIGRAINE Time Seen by Provider: 06/20/19 23:15 Source of Information: Reports: Patient, RN History Limitations: Reports: No Limitations - History of Present Illness INITIAL COMMENTS - FREE TEXT/NARRATIVE: ED ambulatory with c/o severe headache nausea vomiting. Patient seen for similar Tuesday night, Pain returned Tuesday, Vomiting, dry heaves tonight. Chronic hx mild migraines, had been managable with rare use of maxalt. Late April diagnosed with West Nile. Has been seen and followed by Neuro. TC to office on Tuesday. Patient positive HCG on Tuesday, estimated 5-6 weeks. Was instructed to follow with neuro to discuss her current use of toprimate. Reportedly told to continue. Rates current pain 8/10 tight pressure band to top anterior and across forehead. Some blurring of vision. No fever or chills, No urinary symptoms. NO Cough SOB, chest pain, No diarrhea, No weakness. Pain similar in pattern. Tearful states unable to manage symptoms at home. Headache Pain Score (Numeric/FACES): 7 - Related Data Allergies Allergy/AdvReac Type Severity Reaction Status Date / Time doxycycline Allergy Rash Verified 06/20/19 23:17 Home Meds: Home Meds Gabapentin [Neurontin] 300 mg PO TID 02/21/19 [History] Sertraline [Zoloft] 150 mg PO DAILY 02/21/19 [History] busPIRone [Buspar] 10 mg PO BID 02/21/19 [History] Topiramate [Topamax] 100 mg PO DAILY 05/22/19 [History] Metoclopramide HCl [Reglan] 10 mg PO Q4H PRN 05/31/19 [History] Rizatriptan Benzoate [Rizatriptan] 100 mg PO ASDIRECTED 06/04/19 [History] Past Medical History HEENT History: Reports: Impaired Vision Other HEENT History: wears glasses Cardiovascular History: Reports: Blood Clots/VTE/DVT Respiratory History: Reports: None Gastrointestinal History: Reports: None Genitourinary History: Reports: 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 Musculoskeletal History: Reports: Back Pain, Chronic Neurological History: Reports: Migraines Psychiatric History: Reports: Anxiety Endocrine/Metabolic History: Reports: Obesity/BMI 30+ Hematologic History: Reports: None Immunologic History: Reports: None Oncologic (Cancer) History: Reports: None Dermatologic History: Reports: None - Infectious Disease History Infectious Disease History: Reports: Chicken Pox - Past Surgical History Head Surgeries/Procedures: Reports: None GI Surgical History: Reports: Bariatric Procedure, Cholecystectomy Musculoskeletal Surgical History: Reports: Other (See Below) Other Musculoskeletal Surgeries/Procedures:: 5 surgeries on right foot Social & Family History - Family History Family Medical History: Noncontributory - Tobacco Use Smoking Status *Q: Never Smoker Second Hand Smoke Exposure: No - Caffeine Use Caffeine Use: Reports: Soda - Recreational Drug Use Recreational Drug Use: No - Living Situation & Occupation Living situation: Reports: Single Occupation: Employed ED ROS GENERAL - Review of Systems Review Of Systems: ROS reveals no pertinent complaints other than HPI. - Physical Exam Exam: See Below Exam Limited By: No Limitations General Appearance: Alert, Moderate Distress Eye Exam: Bilateral Eye: EOMI Ears: Normal External Exam Nose: Normal Inspection Throat/Mouth: Normal Inspection Head Exam: Atraumatic, Normocephalic Neck: Normal Inspection, Non-Tender, Full Range of Motion, Other (No nuccal rigidity) Respiratory/Chest: No Respiratory Distress, Lungs Clear, Normal Breath Sounds Cardiovascular: Normal Peripheral Pulses, Regular Rate, Rhythm, No Edema GI/Abdominal: Normal Bowel Sounds, Soft Neuro Exam (Abbreviated): Alert, Oriented, Normal Cognition, No Motor/Sensory Deficits Back Exam: Normal Inspection Extremities: Normal Inspection Psychiatric: Tearful Skin Exam: Warm, Dry, Pallor Course - Vital Signs Last Recorded V/S: Last Vital Signs Temp 98.2 F 06/21/19 01:35 Pulse 85 06/21/19 01:35 Resp 18 06/21/19 01:35 BP 117/65 06/21/19 01:48 Pulse Ox 97 06/21/19 01:35 - Orders/Labs/Meds Labs: Laboratory Tests 06/20/19 06/20/19 06/20/19 Range/Units 23:28 23:28 23:28 WBC 8.0 (5.0-10.0) 10^3/uL RBC 3.89 L (4.2-5.4) 10^6/uL Hgb 12.3 (12.0-16.0) g/dL Hct 37.0 (37.0-47.0) % MCV 95.1 (80-100) fL MCH 31.6 (27.0-34.0) pg MCHC 33.2 (33.0-35.0) g/dL Plt Count 189 (150-450) 10^3/uL Neut % (Auto) 60.3 (42.2-75.2) % Lymph % (Auto) 31.3 (20.5-50.1) % [place] % (Auto) 5.9 (2-8) % Eos % (Auto) 2.1 (1.0-3.0) % Baso % (Auto) 0.4 (0.0-1.0) % Sodium 140 (135-145) mmol/L Potassium 3.5 L (3.6-5.0) mmol/L Chloride 110 (101-111) mmol/L Carbon Dioxide 21.0 (21.0-31.0) mmol/L Anion Gap 12.5 BUN 8 (7-18) mg/dL Creatinine 0.8 (0.6-1.3) mg/dL Est Cr Clr Drug Dosing 91.88 mL/min Estimated GFR (MDRD) > 60 BUN/Creatinine Ratio 10.00 Glucose 94 (74-105) mg/dL Calcium 8.8 (8.4-10.2) mg/dl Total Bilirubin 0.3 (0.2-1.0) mg/dL AST 28 (10-42) IU/L ALT 27 (10-60) IU/L Alkaline Phosphatase 44 (42-121) IU/L Total Protein 7.5 (6.7-8.2) g/dl Albumin 4.4 (3.2-5.5) g/dl Globulin 3.1 Albumin/Globulin Ratio 1.42 HCG, Quant > 1359 H (0-25) mIU/ml Beta HCG, Quant 2181 mIU/ml Meds: Medications Discontinued Medications Generic Name Dose Route Start Last Admin Trade Name Freq PRN Reason Stop Dose Admin Butorphanol Tartrate 2 mg 06/20/19 23:54 06/20/19 23:59 Stadol IVPUSH 06/20/19 23:55 2 mg ONETIME ONE Administration Hydromorphone HCl 1 mg 06/21/19 01:25 06/21/19 01:34 Dilaudid IVPUSH 06/21/19 01:26 0.5 mg ONETIME ONE Administration Sodium Chloride 1,000 mls @ 999 mls/hr 06/20/19 23:25 06/20/19 23:34 Normal Saline IV 06/21/19 00:25 999 mls/hr .BOLUS ONE Administration Sodium Chloride 1,000 mls @ 500 mls/hr 06/21/19 00:51 06/21/19 01:02 Normal Saline IV 06/21/19 02:50 500 mls/hr .BOLUS ONE Administration Methylprednisolone Sodium Succinate 62.5 mg 06/21/19 01:25 06/21/19 01:32 Solu-Medrol IVPUSH 06/21/19 01:26 62.5 mg ONETIME ONE Administration Metoclopramide HCl 10 mg 06/20/19 23:33 06/20/19 23:36 Reglan IVPUSH 06/20/19 23:34 10 mg ONETIME ONE Administration Promethazine HCl 25 mg 06/21/19 00:51 06/21/19 01:04 Phenergan IM 06/21/19 00:52 25 mg ONETIME ONE Administration - Re-Assessments/Exams Free Text/Narrative Re-Assessment/Exam: 06/21/19 02:34 Brief improvment in nausea with reglan, Phenergan with longer response. Minimal change in headache with Stadol. Mild improvement with dilaudid but brief. Continues to rate 5/10. SPIKE Davison Neuro. Recommendation to stop topamax, trial steroid taper, initiating at 60mg. Did no feel need for transfer needed. [facility] hospitalist did not deem patient approprpriate and needed to be seen by neuro. Patient continued, mild nausea, Headache under poor control Weather conditions declining. Dr Jevon Davison Hospitalist accepting patient. Tx via [facility] in stable condition. Departure - Departure Time of Disposition: 02:39 Disposition: DC/Tfer to Acute Hospital 02 Condition: Good Clinical Impression: History of West Nile virus (WNV) infection, First trimester Headache Qualifiers: Headache type: unspecified Headache chronicity pattern: chronic headache Intractability: intractable Qualified Code(s): R51 - Headache Nausea & vomiting Qualifiers: Vomiting type: bilious vomiting Qualified Code(s): R11.14 - Bilious vomiting - Discharge Information Referrals: Pohebe Diaz MD [Primary Care Provider] - Forms: ED Department Discharge
== END 2019-06-21 02:36 ==
LOC: DL.ED 23:09
DX: O21.9 Vomiting of pregnancy, unspecified (principal); R51 Headache; O99.341 Other mental disorders complicating pregnancy, first trimester; F41.9 Anxiety disorder, unspecified; Z88.1 Allergy status to other antibiotic agents; Z79.899 Other long term (current) drug therapy; Z86.718 Personal history of other venous thrombosis and embolism; Z3A.01 Less than 8 weeks gestation of pregnancy
CPT/HCPCS: 36415; 80053; 84702; 85025; 96361; 96372; 96374; 96375; 99284; J0595; J1170; J2550; J2765; J2930; J7030

== ENCOUNTER 2019-06-24 15:55 | Emergency (ER) | payer OTHER ==
[2019-06-24] MEDS ORDERED: Ondansetron 4 MG Tab.DIS PO ONE (19:23)
[2019-06-24] MEDS ORDERED: Ketorolac 30 MG/ML SDV IM ONE (19:23)
--- NOTE | 2019-06-24 19:29 | EDM.PDOC ---
ED HPI GENERAL MEDICAL PROBLEM - General Chief Complaint: Headache Stated Complaint: MIGRAINE, NAUSEA 6 WKS PREG Time Seen by Provider: 06/24/19 19:12 Source of Information: Reports: Patient History Limitations: Reports: No Limitations - History of Present Illness INITIAL COMMENTS - FREE TEXT/NARRATIVE: discussed situation with pt & spouse in course of Tx. all concurred. pt states toradol does give some relief and zofran helps. Headache Pain Score (Numeric/FACES): 7 - Related Data Allergies Allergy/AdvReac Type Severity Reaction Status Date / Time doxycycline Allergy Rash Verified 06/24/19 16:42 Home Meds: Home Meds Gabapentin [Neurontin] 300 mg PO TID 02/21/19 [History] Sertraline [Zoloft] 150 mg PO DAILY 02/21/19 [History] busPIRone [Buspar] 10 mg PO BID 02/21/19 [History] Topiramate [Topamax] 100 mg PO DAILY 05/22/19 [History] Metoclopramide HCl [Reglan] 10 mg PO Q4H PRN 05/31/19 [History] Rizatriptan Benzoate [Rizatriptan] 100 mg PO ASDIRECTED 06/04/19 [History] Hydrocodone/Acetaminophen [Hydrocodon-Acetaminophn 10-325] 10 - 325 mg PO Q6H PRN 06/24/19 [History] Past Medical History HEENT History: Reports: Impaired Vision Other HEENT History: wears glasses Cardiovascular History: Reports: Blood Clots/VTE/DVT Respiratory History: Reports: None Gastrointestinal History: Reports: None Genitourinary History: Reports: None 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, Musculoskeletal History: Reports: Back Pain, Chronic Neurological History: Reports: Migraines Psychiatric History: Reports: Anxiety Endocrine/Metabolic History: Reports: Obesity/BMI 30+ Hematologic History: Reports: None Immunologic History: Reports: None Oncologic (Cancer) History: Reports: None Dermatologic History: Reports: None - Infectious Disease History Infectious Disease History: Reports: Chicken Pox, Other (See Below) Other Infectious Disease History: 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 - Past Surgical History Head Surgeries/Procedures: Reports: None GI Surgical History: Reports: Bariatric Procedure, Cholecystectomy Musculoskeletal Surgical History: Reports: Other (See Below) Other Musculoskeletal Surgeries/Procedures:: 5 surgeries on right foot Social & Family History - Family History Family Medical History: Noncontributory - Tobacco Use Smoking Status *Q: Never Smoker Second Hand Smoke Exposure: No - Caffeine Use Caffeine Use: Reports: None - Recreational Drug Use Recreational Drug Use: No - Living Situation & Occupation Living situation: Reports: Single Occupation: Employed ED ROS GENERAL - Review of Systems Review Of Systems: ROS reveals no pertinent complaints other than HPI. - Physical Exam Exam: See Below Exam Limited By: No Limitations General Appearance: Alert, WD/WN, Mild Distress, Other (tearful) Eye Exam: Bilateral Eye: PERRL (pupils ER @ 4mm) Ears: Hearing Grossly Normal Throat/Mouth: Normal Voice, No Airway Compromise Head Exam: Atraumatic Neck: Non-Tender, Full Range of Motion Respiratory/Chest: No Respiratory Distress Cardiovascular: Regular Rate, Rhythm GI/Abdominal: Soft, Non-Tender Neuro Exam (Abbreviated): Alert, Oriented, Normal Cognition, Normal Gait, No Motor/Sensory Deficits Psychiatric: Tearful Skin Exam: Warm, Dry, Normal Color Course - Vital Signs Last Recorded V/S: Last Vital Signs Temp 37.1 C 06/24/19 16:37 Pulse 83 06/24/19 16:37 Resp 16 06/24/19 16:37 BP 122/74 06/24/19 16:37 Pulse Ox 99 06/24/19 16:37 - Orders/Labs/Meds Orders: Active Orders 24 hr Category Date Time Status Ketorolac [Toradol] Med 06/24/19 19:23 Once 30 mg IM ONETIME ONE Ondansetron [Zofran ODT] Med 06/24/19 19:23 Once 4 mg PO ONETIME ONE Departure - Departure Time of Disposition: 19:27 Disposition: Home, Self-Care 01 Condition: Good Clinical Impression: Migraine Nausea & vomiting Qualifiers: Vomiting type: unspecified Vomiting Intractability: non-intractable Qualified Code(s): R11.2 - Nausea with vomiting, unspecified - Discharge Information Additional Instructions: 1) rest as much as possible 2) follow up at clinic 3) recheck as needed - My Orders Last 24 Hours: My Active Orders 06/24/19 19:23 Ketorolac [Toradol] 30 mg IM ONETIME ONE Ondansetron [Zofran ODT] 4 mg PO ONETIME ONE - Assessment/Plan Last 24 Hours: My Active Orders 06/24/19 19:23 Ketorolac [Toradol] 30 mg IM ONETIME ONE Ondansetron [Zofran ODT] 4 mg PO ONETIME ONE
== END 2019-06-24 19:45 | disposition home or self-care (01) ==
LOC: DL.ED 15:55
DX: O99.351 Diseases of the nervous system complicating pregnancy, first trimester (principal); G43.909 Migraine, unspecified, not intractable, without status migrainosus; O21.9 Vomiting of pregnancy, unspecified; O99.211 Obesity complicating pregnancy, first trimester; E66.9 Obesity, unspecified; O99.341 Other mental disorders complicating pregnancy, first trimester; F41.9 Anxiety disorder, unspecified; Z3A.01 Less than 8 weeks gestation of pregnancy; Z79.899 Other long term (current) drug therapy; Z88.1 Allergy status to other antibiotic agents
CPT/HCPCS: 96372; 99282; A9270-GY; J1885

== ENCOUNTER 2019-07-17 14:12 | Emergency (ER) | payer OTHER ==
--- NOTE | 2019-07-17 14:32 | EDM.PDOC ---
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 10wks gestation presents to ER by POV with concern that she is having a miscarriage. Pt began having a lot of low back pain and cramping this morning, followed by pelvic cramping and mild vaginal bleeding. Pt denies N /V/D/C, dysuria, fever, or chills. She denies heavy vaginal bleeding, passage of clots or tissue. Pt states she had a normal US at 8 weeks. Onset: Today Duration: Constant Location: Reports: Pelvis (Vaginal) Quality: Reports: Other (Cramping) Severity: Moderate Improves with: Reports: None Worsens with: Reports: None Associated Symptoms: Reports: No Other Symptoms Abdominal Pain Score (Numeric/FACES): 6 - Related Data Allergies Allergy/AdvReac Type Severity Reaction Status Date / Time doxycycline Allergy Rash Verified 07/17/19 14:26 Home Meds: Home Meds Gabapentin [Neurontin] 300 mg PO TID 02/21/19 [History] Sertraline [Zoloft] 150 mg PO DAILY 02/21/19 [History] busPIRone [Buspar] 10 mg PO BID 02/21/19 [History] Metoclopramide HCl [Reglan] 10 mg PO Q4H PRN 05/31/19 [History] Past Medical History HEENT History: Reports: Impaired Vision Other HEENT History: wears glasses Cardiovascular History: Reports: Blood Clots/VTE/DVT Respiratory History: Reports: None Gastrointestinal History: Reports: None Genitourinary History: Reports: None 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, Musculoskeletal History: Reports: Back Pain, Chronic Neurological History: Reports: Migraines Psychiatric History: Reports: Anxiety Endocrine/Metabolic History: Reports: Obesity/BMI 30+ Hematologic History: Reports: None Immunologic History: Reports: None Oncologic (Cancer) History: Reports: None Dermatologic History: Reports: None - Infectious Disease History Infectious Disease History: Reports: Chicken Pox, Other (See Below) Other Infectious Disease History: 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 - Past Surgical History Head Surgeries/Procedures: Reports: None GI Surgical History: Reports: Bariatric Procedure, Cholecystectomy Musculoskeletal Surgical History: Reports: Other (See Below) Other Musculoskeletal Surgeries/Procedures:: 5 surgeries on right foot Social & Family History - Family History Family Medical History: Noncontributory - Tobacco Use Smoking Status *Q: Former Smoker Years of Tobacco use: 2 Packs/Tins Daily: 0.5 Used Tobacco, but Quit: Yes Month/Year Tobacco Last Used: July Second Hand Smoke Exposure: No - Caffeine Use Caffeine Use: Reports: None - Recreational Drug Use Recreational Drug Use: No - Living Situation & Occupation Living situation: Reports: Single Occupation: Employed ED ROS GENERAL - Review of Systems Review Of Systems: ROS reveals no pertinent complaints other than HPI. ED EXAM - Physical Exam Exam: See Below Exam Limited By: No Limitations General Appearance: Alert, WD/WN, No Apparent Distress, Obese Throat/Mouth: Normal Inspection Head: Atraumatic, Normocephalic Respiratory/Chest: No Respiratory Distress, Lungs Clear, Normal Breath Sounds, No Accessory Muscle Use, Chest Non-Tender Cardiovascular: Normal Peripheral Pulses, Regular Rate, Rhythm, No Edema, No Gallop, No JVD, No Murmur, No Rub GI/Abdominal Exam: Normal Bowel Sounds, Soft, No Organomegaly, No Distention, No Abnormal Bruit, No Mass, Pelvis Stable, Tender (Mild suprapubic tenderness) Rectal Exam: Deferred (Female) Exam: Deferred for Placenta Previa Back Exam: Normal Inspection Extremities: Normal Inspection Neurological: Alert, Oriented, No Motor/Sensory Deficits Psychiatric: Anxious, Tearful Skin Exam: Warm, Dry, Normal Color. No: Ecchymosis, Petechiae Course - Vital Signs Last Recorded V/S: Last Vital Signs Temp 96.6 F 07/17/19 14:22 Pulse 104 H 07/17/19 14:22 Resp 16 07/17/19 14:22 BP 119/74 07/17/19 14:22 Pulse Ox 95 07/17/19 14:22 - Orders/Labs/Meds Orders: Active Orders 24 hr Category Date Time Status OB 1st Tri Sgl 1st Gest [US] Routine Exams 07/17/19 15:41 Taken OB Transvaginal [US] Urgent Exams 07/17/19 15:36 Taken CULTURE URINE [] Stat Lab 07/17/19 14:41 Received Acetaminophen/HYDROcodone [[place] 325-10 MG] Med 07/17/19 16:29 Once 1 tab PO ONETIME ONE Medication Orders Hydrocodone Bitart/Acetaminophen ([place] 325-10 Mg) 1 tab PO ONETIME ONE Stop: 07/17/19 16:30 Labs: Laboratory Tests 07/17/19 07/17/19 07/17/19 Range/Units 14:41 14:42 14:42 WBC 7.9 (5.0-10.0) 10^3/uL RBC 3.85 L (4.2-5.4) 10^6/uL Hgb 12.1 (12.0-16.0) g/dL Hct 36.4 L (37.0-47.0) % MCV 94.5 (80-100) fL MCH 31.4 (27.0-34.0) pg MCHC 33.2 (33.0-35.0) g/dL Plt Count 257 (150-450) 10^3/uL Neut % (Auto) 61.0 (42.2-75.2) % Lymph % (Auto) 26.2 (20.5-50.1) % [place] % (Auto) 7.3 (2-8) % Eos % (Auto) 5.1 H (1.0-3.0) % Baso % (Auto) 0.4 (0.0-1.0) % HCG, Quant > 1359 H (0-25) mIU/ml Beta HCG, Quant 96661 mIU/ml Urine Color Yellow (YELLOW) Urine Appearance Turbid (CLEAR) Urine pH 5.5 (5.0-9.0) Ur Specific [place] 1.020 (1.005-1.030) Urine Protein 100 H (NEGATIVE) Urine Glucose (UA) Negative (NEGATIVE) Urine Ketones Negative (NEGATIVE) Urine Occult Blood Large H (NEGATIVE) Urine Nitrite Negative (NEGATIVE) Urine Bilirubin Negative (NEGATIVE) Urine Urobilinogen 0.2 (0.2-1.0) mg/dL Ur Leukocyte Esterase Trace H (NEGATIVE) Urine RBC 75-100 H /HPF Urine WBC 20-30 H (0-5/HPF) /HPF Ur Epithelial Cells Moderate H (NOT SEEN) /HPF Calcium Oxalate Crystal Few H (NOT SEEN) /HPF Amorphous Sediment Moderate H (NOT SEEN) /HPF Urine Bacteria Few (0-FEW/HPF) /HPF Urine Mucus Occasional (NOT SEEN) /LPF Meds: Medications Generic Name Dose Route Start Last Admin Trade Name Freq PRN Reason Stop Dose Admin Hydrocodone Bitart/Acetaminophen 1 tab 07/17/19 16:29 [place] 325-10 Mg PO 07/17/19 16:30 ONETIME ONE Discontinued Medications Generic Name Dose Route Start Last Admin Trade Name Freq PRN Reason Stop Dose Admin Acetaminophen 650 mg 07/17/19 15:37 07/17/19 15:44 Tylenol PO 07/17/19 15:38 650 mg NOW ONE Administration - Radiology Interpretation Free Text/Narrative:: OB US: Single IUP measuring 6wks near the cervix, no cardiac activity. Departure - Departure Time of Disposition: 16:31 Disposition: Home, Self-Care 01 Condition: Good Clinical Impression: Incomplete - Discharge Information *PRESCRIPTION DRUG MONITORING PROGRAM REVIEWED*: No *COPY OF PRESCRIPTION DRUG MONITORING REPORT IN PATIENT DESI: No Instructions: Miscarriage, [id number] Forms: ED Department Discharge Additional Instructions: Rx: [place] 5mg/325mg *Do not drive while under the influence of this medication. Follow up with Dr. Mcmahon in clinic next week. Dr. Mcmahon is aware of your miscarriage, and you may call her or see her sooner than next week if needed. Return to the ER if you develop a fever, has severe pain, feel faint, or have prolonged heavy vaginal bleeding (completely soaking one large pad per hour for 2 or more hours). - My Orders Last 24 Hours: My Active Orders 07/17/19 14:41 CULTURE URINE [RM] Stat 07/17/19 15:36 OB Transvaginal [US] Urgent 07/17/19 15:41 OB 1st Tri Sgl 1st Gest [US] Routine 07/17/19 16:29 Acetaminophen/HYDROcodone [[place] 325-10 MG] 1 tab PO ONETIME ONE - Assessment/Plan Last 24 Hours: My Active Orders 07/17/19 14:41 CULTURE URINE [RM] Stat 07/17/19 15:36 OB Transvaginal [US] Urgent 07/17/19 15:41 OB 1st Tri Sgl 1st Gest [US] Routine 07/17/19 16:29 Acetaminophen/HYDROcodone [[place] 325-10 MG] 1 tab PO ONETIME ONE
[2019-07-17] MEDS ORDERED: Acetaminophen 325 MG Tab PO ONE (15:37)
[2019-07-17] MEDS ORDERED: Acetaminophen/HYDROcodone 325-10 MG Tab PO ONE (16:29)
== END 2019-07-17 16:48 | disposition home or self-care (01) ==
LOC: DL.ED 14:12
DX: O03.4 Incomplete spontaneous abortion without complication (principal); F41.9 Anxiety disorder, unspecified; E66.9 Obesity, unspecified; Z68.41 Body mass index [BMI] 40.0-44.9, adult; Z88.1 Allergy status to other antibiotic agents; Z79.899 Other long term (current) drug therapy; Z87.891 Personal history of nicotine dependence; Z86.718 Personal history of other venous thrombosis and embolism
CPT/HCPCS: 36415; 76801; 76817; 81001; 84702; 85025; 87086; 99284; A9270

== ENCOUNTER 2019-07-20 21:31 | Emergency (ER) | payer OTHER ==
[2019-07-20] MEDS ORDERED: Sodium Chloride 0.9% 1,000 ML IV ONE (22:50)
[2019-07-20] MEDS ORDERED: Metoclopramide 10 MG/2 ML SDV IVPUSH ONE (22:51)
[2019-07-20] MEDS ORDERED: LORazepam 2 MG/ML Syringe IVPUSH ONE (22:52)
[2019-07-20 23:05] LABS: ANION GAP 12.7; CHLORIDE,CL 104 mmol/L (101-111); SODIUM,NA 137 mmol/L (135-145)
[2019-07-21] MEDS ORDERED: Sodium Chloride 0.9% 1,000 ML IV ONE (01:13)
--- NOTE | 2019-07-21 01:41 | EDM.PDOC ---
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 No fever, nausea today unable to keep anything down, Notes anxiety, tried Ativan but threw it up. No report of headache, just feels "sick" Lower Anterior Abdomen Pain Score (Numeric/FACES): 7 - Related Data Allergies Allergy/AdvReac Type Severity Reaction Status Date / Time doxycycline Allergy Rash Verified 07/20/19 22:17 Home Meds: Home Meds Gabapentin [Neurontin] 300 mg PO TID 02/21/19 [History] Sertraline [Zoloft] 150 mg PO DAILY 02/21/19 [History] busPIRone [Buspar] 10 mg PO BID 02/21/19 [History] Metoclopramide HCl [Reglan] 10 mg PO Q4H PRN 05/31/19 [History] Past Medical History HEENT History: Reports: Impaired Vision Other HEENT History: wears glasses Cardiovascular History: Reports: Blood Clots/VTE/DVT Respiratory History: Reports: None Gastrointestinal History: Reports: None Genitourinary History: Reports: None 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, , 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 Musculoskeletal History: Reports: Back Pain, Chronic Neurological History: Reports: Migraines Psychiatric History: Reports: Anxiety Endocrine/Metabolic History: Reports: Obesity/BMI 30+ Hematologic History: Reports: None Immunologic History: Reports: None Oncologic (Cancer) History: Reports: None Dermatologic History: Reports: None - Infectious Disease History Infectious Disease History: Reports: Chicken Pox, Other (See Below) Other Infectious Disease History: 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 - Past Surgical History Head Surgeries/Procedures: Reports: None GI Surgical History: Reports: Bariatric Procedure, Cholecystectomy Musculoskeletal Surgical History: Reports: Other (See Below) Other Musculoskeletal Surgeries/Procedures:: 5 surgeries on right foot Social & Family History - Family History Family Medical History: Noncontributory - Tobacco Use Smoking Status *Q: Never Smoker Second Hand Smoke Exposure: No - Caffeine Use Caffeine Use: Reports: None - Recreational Drug Use Recreational Drug Use: No - Living Situation & Occupation Living situation: Reports: Single Occupation: Employed ED ROS GENERAL - Review of Systems Review Of Systems: ROS reveals no pertinent complaints other than HPI. ED EXAM, GI/ABD - Physical Exam Exam: See Below Exam Limited By: No Limitations General Appearance: Alert, Anxious, Mild Distress Eyes: Bilateral: EOMI Ears: Normal External Exam Nose: Normal Inspection Throat/Mouth: Normal Inspection Head: Atraumatic, Normocephalic Neck: Normal Inspection Respiratory/Chest: No Respiratory Distress, Lungs Clear, Normal Breath Sounds Cardiovascular: Normal Peripheral Pulses, Regular Rate, Rhythm GI/Abdominal Exam: Normal Bowel Sounds, Soft (Female) Exam: Uterine Tenderness, Vaginal Bleeding (small amount dark red, no odor ). No: Cervix Motion Tenderness Back Exam: Full Range of Motion Extremities: Normal Inspection Neurological: Alert, Oriented, Normal Cognition Psychiatric: Anxious, Flat Affect Skin Exam: Warm, Dry, Intact, Normal Color. No: Pallor Course - Vital Signs Last Recorded V/S: Last Vital Signs Temp 96.3 F 07/20/19 22:25 Pulse 76 07/21/19 01:21 Resp 16 07/21/19 01:21 BP 101/51 L 07/21/19 01:21 Pulse Ox 93 L 07/21/19 01:21 - Orders/Labs/Meds Labs: Laboratory Tests 07/20/19 07/20/19 07/20/19 Range/Units 22:38 22:38 22:38 WBC 7.0 (5.0-10.0) 10^3/uL RBC 3.69 L (4.2-5.4) 10^6/uL Hgb 11.5 L (12.0-16.0) g/dL Hct 34.4 L (37.0-47.0) % MCV 93.2 (80-100) fL MCH 31.2 (27.0-34.0) pg MCHC 33.4 (33.0-35.0) g/dL Plt Count 266 (150-450) 10^3/uL Neut % (Auto) 67.9 (42.2-75.2) % Lymph % (Auto) 22.3 (20.5-50.1) % [place] % (Auto) 6.5 (2-8) % Eos % (Auto) 2.7 (1.0-3.0) % Baso % (Auto) 0.6 (0.0-1.0) % Sodium 137 (135-145) mmol/L Potassium 3.7 (3.6-5.0) mmol/L Chloride 104 (101-111) mmol/L Carbon Dioxide 24.0 (21.0-31.0) mmol/L Anion Gap 12.7 BUN 9 (7-18) mg/dL Creatinine 0.7 (0.6-1.3) mg/dL Est Cr Clr Drug Dosing 105.01 mL/min Estimated GFR (MDRD) > 60 BUN/Creatinine Ratio 12.85 Glucose 94 (74-105) mg/dL Lactic Acid 1.0 (0.5-2.2) mmol/L Calcium 9.1 (8.4-10.2) mg/dl Total Bilirubin 0.6 (0.2-1.0) mg/dL AST 14 (10-42) IU/L ALT 11 (10-60) IU/L Alkaline Phosphatase 51 (42-121) IU/L Total Protein 6.9 (6.7-8.2) g/dl Albumin 3.8 (3.2-5.5) g/dl Globulin 3.1 Albumin/Globulin Ratio 1.23 HCG, Quant (0-25) mIU/ml Beta HCG, Quant mIU/ml 07/20/19 Range/Units 22:38 WBC (5.0-10.0) 10^3/uL RBC (4.2-5.4) 10^6/uL Hgb (12.0-16.0) g/dL Hct (37.0-47.0) % MCV (80-100) fL MCH (27.0-34.0) pg MCHC (33.0-35.0) g/dL Plt Count (150-450) 10^3/uL Neut % (Auto) (42.2-75.2) % Lymph % (Auto) (20.5-50.1) % [place] % (Auto) (2-8) % Eos % (Auto) (1.0-3.0) % Baso % (Auto) (0.0-1.0) % Sodium (135-145) mmol/L Potassium (3.6-5.0) mmol/L Chloride (101-111) mmol/L Carbon Dioxide (21.0-31.0) mmol/L Anion Gap BUN (7-18) mg/dL Creatinine (0.6-1.3) mg/dL Est Cr Clr Drug Dosing mL/min Estimated GFR (MDRD) BUN/Creatinine Ratio Glucose (74-105) mg/dL Lactic Acid (0.5-2.2) mmol/L Calcium (8.4-10.2) mg/dl Total Bilirubin (0.2-1.0) mg/dL AST (10-42) IU/L ALT (10-60) IU/L Alkaline Phosphatase (42-121) IU/L Total Protein (6.7-8.2) g/dl Albumin (3.2-5.5) g/dl Globulin Albumin/Globulin Ratio HCG, Quant 848 H (0-25) mIU/ml Beta HCG, Quant 1097 mIU/ml Meds: Medications Discontinued Medications Generic Name Dose Route Start Last Admin Trade Name Freq PRN Reason Stop Dose Admin Hydromorphone HCl 1 mg 07/21/19 01:47 Dilaudid IVPUSH 07/21/19 01:48 ONETIME ONE Sodium Chloride 1,000 mls @ 999 mls/hr 07/20/19 22:50 07/20/19 23:02 Normal Saline IV 07/20/19 23:50 999 mls/hr .BOLUS ONE Administration Sodium Chloride 1,000 mls @ 999 mls/hr 07/21/19 01:13 07/21/19 01:39 Normal Saline IV 07/21/19 02:13 999 mls/hr .BOLUS ONE Administration Lorazepam 1 mg 07/20/19 22:52 07/20/19 23:02 Ativan IVPUSH 07/20/19 22:53 1 mg ONETIME ONE Administration Metoclopramide HCl 10 mg 07/20/19 22:51 07/20/19 23:02 Reglan IVPUSH 07/20/19 22:52 10 mg ONETIME ONE Administration - Radiology Interpretation Free Text/Narrative:: [facility] Final Radiology Report Call: [phone] assistance Online chat: [email or web address] Name: ELIZABETH REDDY Age: 34Years F Date: 07/20/2019 SSN: -- : 1985 Study: US LTD ONE OR MORE FETUSES Requesting Physician: MANUEL HENRY Images: 11 Addl Studies: [id number] - US TRANSVAGINAL (0) Provided Clinical History: Pt was preg but has miscarried. She had an US this past Tuesday and miscarriage was confirmed at that time. Contrast: Without Contrast Medium: Contrast Amount: Contrast Method: Page 1 of 2 PROCEDURE INFORMATION: Exam: US First Trimester, Transabdominal and US , Transvaginal Exam date and time: 07/20/2019 11:33 PM Clinical history: 34 years old, female; Lmp or gestational age (in weeks): N/a; Other: Bleeding. PT has miscarried; ; Additional info: PT was preg but has miscarried. She had an US this past Tuesday and miscarriage was confirmed at that time. TECHNIQUE: Imaging protocol: Real-time transabdominal obstetrical ultrasound of the maternal pelvis and a first trimester , less than 14 weeks 0 days, with image documentation. Transvaginal imaging was used for better evaluation of the fetus and adnexa. COMPARISON: US OB Transvaginal 07/17/2019 3:59 PM FINDINGS: INTRAUTERINE GESTATION: No gestational sac identified. POLE: Not identified. YOLK SAC: Not identified. HEART RATE: Not identified. MATERNAL: Uterus: Unremarkable. No evidence of retained products of session. Cervix: Unremarkable. Right adnexa: The RIGHT ovary could not be visualized secondary to overlying bowel gas. Left adnexa: The LEFT ovary cannot be visualized secondary to overlying bowel gas. Intraperitoneal: No intraperitoneal free fluid. IMPRESSION: 1. Nonvisualization of the ovaries. ELIZABETH REDDY | Final Radiology Report CONFIDENTIALITY STATEMENT This report is intended only for use by the referring physician, and only in accordance with law. If you received this in error, call [phone]. Page 2 of 2 2. No evidence of retained products of session. Thank you for allowing us to participate in the care of your patient. Dictated and Authenticated by: Luciana Pinzon MD 07/21/2019 12:08 AM Central Time ([place] & [place]) Departure - Departure Time of Disposition: 01:42 Disposition: Home, Self-Care 01 Condition: Good Clinical Impression: Complete miscarriage - Discharge Information *PRESCRIPTION DRUG MONITORING PROGRAM REVIEWED*: No *COPY OF PRESCRIPTION DRUG MONITORING REPORT IN PATIENT DESI: No Instructions: Miscarriage Referrals: Iqra Mcmahon MD [Primary Care Provider] - Forms: ED Department Discharge Additional Instructions: rest light activity no lifting greater than 10# x one week diet as tolerated follow up clinic early next week urgent follow up increased pain fever, increased vaginal bleeding odor to discharge.
[2019-07-21] MEDS ORDERED: HYDROmorphone 1 MG/ML Syringe IVPUSH ONE (01:47)
== END 2019-07-21 02:20 | disposition home or self-care (01) ==
LOC: DL.ED 21:31
DX: O03.9 Complete or unspecified spontaneous abortion without complication (principal)
CPT/HCPCS: 36415; 76815; 80053; 83605; 84702; 85025; 87040; 96361; 96374; 96375; 99284; J2060; J2765; J7030; J1170

== ENCOUNTER 2019-09-15 10:13 | Emergency (ER) | payer OTHER ==
--- NOTE | 2019-09-15 10:56 | EDM.PDOC ---
ED HPI GENERAL MEDICAL PROBLEM - General Chief Complaint: Headache Stated Complaint: HEADACHE Time Seen by Provider: 09/15/19 10:40 Source of Information: Reports: Patient, RN, RN Notes Reviewed History Limitations: Reports: No Limitations - History of Present Illness INITIAL COMMENTS - FREE TEXT/NARRATIVE: A 34-year-old female who presents to ER with a migraine that started 2 days ago. She has tried Propranolol and Maxalt x 2 doses with no relief. She does admit to a history of migraines and reports that it usually resolved with Propranolol or caffeine with Benadryl. None of this medication seems to be working at this time. She is due to see neurology next week. She admits to having nausea but no vomiting. She is photophobic. Denies any head trauma or injury or fall. Onset Date: 09/13/19 Duration: Getting Worse Location: Reports: Head Quality: Reports: Ache, Throbbing Severity: Moderate Improves with: Reports: None Worsens with: Reports: None Associated Symptoms: Reports: No Other Symptoms Headache Pain Score (Numeric/FACES): 6 - Related Data Allergies Allergy/AdvReac Type Severity Reaction Status Date / Time doxycycline Allergy Rash Verified 09/15/19 10:25 Home Meds: Home Meds Gabapentin [Neurontin] 300 mg PO TID 02/21/19 [History] Sertraline [Zoloft] 150 mg PO DAILY 02/21/19 [History] busPIRone [Buspar] 10 mg PO BID 02/21/19 [History] Cyanocobalamin/Folic AC/Vit B6 [Folic Acid-Vit B6-Vit B12] 1 tab PO DAILY [History] Orphenadrine [Norflex] 100 mg PO BEDTIME 08/28/19 [History] Propranolol [Inderal LA] 80 mg PO DAILY 08/28/19 [History] oxyCODONE HCl/Acetaminophen [Oxycodone-Acetaminophen 5-325] 1 tab PO Q6H PRN [History] traZODone HCl [Trazodone HCl] 150 mg PO BEDTIME PRN 08/28/19 [History] Past Medical History HEENT History: Reports: Impaired Vision Other HEENT History: wears glasses Cardiovascular History: Reports: Blood Clots/VTE/DVT, Other (See Below) Other Cardiovascular History: RIGHT LEG BLOOD CLOT 2008 Respiratory History: Reports: None Gastrointestinal History: Reports: None Genitourinary History: Reports: None 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: , 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 Musculoskeletal History: Reports: Other (See Below) Other Musculoskeletal History: CHRONIC RIGHT FOOT PAIN Neurological History: Reports: Migraines Psychiatric History: Reports: Anxiety Endocrine/Metabolic History: Reports: Obesity/BMI 30+ Hematologic History: Reports: None Immunologic History: Reports: None Oncologic (Cancer) History: Reports: None Dermatologic History: Reports: None - Infectious Disease History Infectious Disease History: Reports: Chicken Pox, Other (See Below) Other Infectious Disease History: 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 - Past Surgical History Head Surgeries/Procedures: Reports: None HEENT Surgical History: Reports: None Cardiovascular Surgical History: Reports: None Respiratory Surgical History: Reports: None GI Surgical History: Reports: Bariatric Procedure, Cholecystectomy, Other (See Below) Other GI Surgeries/Procedures: S/P GASTRIC BYPASS Female Surgical History: Reports: Breast Biopsy Endocrine Surgical History: Reports: None Neurological Surgical History: Reports: None Musculoskeletal Surgical History: Reports: Other (See Below) Other Musculoskeletal Surgeries/Procedures:: 5 surgeries on right foot Oncologic Surgical History: Reports: None Dermatological Surgical History: Reports: None Social & Family History - Family History Family Medical History: Noncontributory - Tobacco Use Smoking Status *Q: Never Smoker Second Hand Smoke Exposure: No - Caffeine Use Caffeine Use: Reports: Soda Other Caffeine Use: MODERATE CANS OF SODA POP DAILY - Recreational Drug Use Recreational Drug Use: No - Living Situation & Occupation Living situation: Reports: Single Occupation: Employed ED ROS GENERAL - Review of Systems Review Of Systems: Comprehensive ROS is negative, except as noted in HPI. - Physical Exam Exam: See Below Exam Limited By: No Limitations General Appearance: Alert, WD/WN, Moderate Distress Eye Exam: Bilateral Eye: EOMI, Normal Inspection, PERRL Ears: Normal External Exam, Normal Canal, Hearing Grossly Normal, Normal TMs Nose: Normal Inspection, Normal Mucosa, No Blood Throat/Mouth: Normal Inspection, Normal Lips, Normal Teeth, Normal Gums, Normal Oropharynx, Normal Voice, No Airway Compromise Head Exam: Atraumatic, Normocephalic Neck: Normal Inspection, Supple, Non-Tender, Full Range of Motion Respiratory/Chest: No Respiratory Distress, Lungs Clear, Normal Breath Sounds, No Accessory Muscle Use, Chest Non-Tender Cardiovascular: Normal Peripheral Pulses, Regular Rate, Rhythm, No Edema, No Gallop, No JVD, No Murmur, No Rub Neuro Exam (Abbreviated): Alert, Oriented, CN II-XII Intact, Normal Cognition, Normal Gait, Normal Reflexes, No Motor/Sensory Deficits Psychiatric: Normal Affect, Normal Mood Skin Exam: Warm, Dry, Intact, Normal Color, No Rash Course - Vital Signs Last Recorded V/S: Last Vital Signs Temp 96.1 F 09/15/19 10:20 Pulse 97 09/15/19 10:20 Resp 18 09/15/19 10:20 BP 122/92 H 09/15/19 10:20 Pulse Ox 100 09/15/19 10:20 - Orders/Labs/Meds Meds: Medications Discontinued Medications Generic Name Dose Route Start Last Admin Trade Name Reji PRN Reason Stop Dose Admin Butorphanol Tartrate 2 mg 09/15/19 10:58 09/15/19 11:07 Stadol IVPUSH 09/15/19 10:59 2 mg ONETIME ONE Administration Sodium Chloride 1,000 mls @ 1,000 mls/hr 09/15/19 10:59 09/15/19 11:07 Normal Saline IV 09/15/19 11:58 1,000 mls/hr .BOLUS ONE Administration Promethazine HCl 25 mg 09/15/19 10:59 09/15/19 11:07 Phenergan IM 09/15/19 11:00 25 mg ONETIME ONE Administration - Re-Assessments/Exams Free Text/Narrative Re-Assessment/Exam: 09/15/19 11:01 A 34-year-old female who presents with complaint of migraine pain in the right side of the eye. She has a known history for migraine. Medications as documented in the chart. 09/15/19 12:08 Patient reports relief with administered medications. Departure - Departure Time of Disposition: 12:09 Disposition: Home, Self-Care 01 Condition: Good Clinical Impression: Migraine Qualifiers: Migraine type: unspecified Status migrainosus presence: with status migrainosus Intractability: intractable Qualified Code(s): G43.911 - Migraine, unspecified, intractable, with status migrainosus - Discharge Information Instructions: Recurrent Migraine Headache, Pbar-[id number] Forms: ED Department Discharge Additional Instructions: Follow up in the clinic with neurology as scheduled. Push fluids and rest. Sepsis Event Note - Evaluation Sepsis Screening Result: No Definite Risk - Focused Exam Vital Signs: Vital Signs Temp Pulse Resp BP Pulse Ox 09/15/19 10:20 96.1 F 97 18 122/92 H 100 Date Exam was Performed: 09/15/19 Time Exam was Performed: 12:08
[2019-09-15] MEDS ORDERED: Butorphanol 2 MG/ML SDV IVPUSH ONE (10:58)
[2019-09-15] MEDS ORDERED: Promethazine 25 MG/ML SDV IM ONE (10:59)
[2019-09-15] MEDS ORDERED: Sodium Chloride 0.9% 1,000 ML IV ONE (10:59)
== END 2019-09-15 12:20 | disposition home or self-care (01) ==
LOC: DL.ED 10:13
DX: G43.911 Migraine, unspecified, intractable, with status migrainosus (principal); F41.9 Anxiety disorder, unspecified; E66.9 Obesity, unspecified; Z68.41 Body mass index [BMI] 40.0-44.9, adult; Z86.718 Personal history of other venous thrombosis and embolism; Z88.1 Allergy status to other antibiotic agents; Z79.899 Other long term (current) drug therapy
CPT/HCPCS: 96361; 96372; 96374; 99283; J0595; J2550; J7030

== ENCOUNTER 2020-02-25 07:40 | Emergency (ER) | payer OTHER ==
[2020-02-25] MEDS ORDERED: Ondansetron 4 MG/2 ML SDV IV ONE (08:03)
[2020-02-25] MEDS ORDERED: Sodium Chloride 0.9% 10 ML Syringe FLUSH PRN (08:03)
[2020-02-25] MEDS ORDERED: Sodium Chloride 0.9% 1,000 ML IV ONE ×2 (08:03→09:25)
--- NOTE | 2020-02-25 08:04 | EDM.PDOC ---
ED HPI GENERAL MEDICAL PROBLEM - General Stated Complaint: SICK SINCE TUESDAY/THROWING UP Time Seen by Provider: 02/25/20 08:04 Source of Information: Reports: Patient, RN, RN Notes Reviewed History Limitations: Reports: No Limitations - History of Present Illness INITIAL COMMENTS - FREE TEXT/NARRATIVE: Patient presents to ER with complaint of nausea and vomiting since . Patient states she is 20 weeks and has had morning sickness, but since has been vomiting about every hour, hour and a half. Patient states that this time it is mostly dry heaving. Patient did see Dr. Mcmahon her 16- week appointment, and does have an appointment set up for tomorrow for her 20- week appointment, but states she was unable to wait that long. Patient has been taking Reglan and Zofran, alternating these meds for nausea. Patient denies diarrhea, fever, chills. Patient states she thought she had felt some fluttering, but is unsure what the movement feels like. States she has not felt the fluttering for a couple weeks. This is the patient's second , she did have a miscarriage at 11 weeks and 2019. Patient has no living children. Onset: Gradual Onset Date: 02/21/20 - Related Data Allergies Allergy/AdvReac Type Severity Reaction Status Date / Time doxycycline Allergy Rash Verified 02/25/20 08:13 Home Meds: Home Meds Gabapentin [Neurontin] 300 mg PO TID 02/21/19 [History] Sertraline [Zoloft] 150 mg PO DAILY 02/21/19 [History] busPIRone [Buspar] 10 mg PO BID 02/21/19 [History] Cyanocobalamin/Folic AC/Vit B6 [Folic Acid-Vit B6-Vit B12] 1 tab PO DAILY [History] Orphenadrine [Norflex] 100 mg PO BEDTIME 08/28/19 [History] Propranolol [Inderal LA] 80 mg PO DAILY 08/28/19 [History] oxyCODONE HCl/Acetaminophen [Oxycodone-Acetaminophen 5-325] 1 tab PO Q6H PRN [History] traZODone HCl [Trazodone HCl] 150 mg PO BEDTIME PRN 08/28/19 [History] Buprenorphine HCl/Naloxone HCl [Suboxone 4 mg-1 mg Sl Film] 1 film SL DAILY [History] Prenat 115/Iron Fum/Folic/Dss [ 19 Tablet] 1 tab PO DAILY 02/25/20 [ History] Past Medical History HEENT History: Reports: Impaired Vision Other HEENT History: wears glasses Cardiovascular History: Reports: Blood Clots/VTE/DVT, Other (See Below) Other Cardiovascular History: RIGHT LEG BLOOD CLOT 2007 Respiratory History: Reports: None Gastrointestinal History: Reports: None Genitourinary History: Reports: None 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: , 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 Musculoskeletal History: Reports: Other (See Below) Other Musculoskeletal History: CHRONIC RIGHT FOOT PAIN Neurological History: Reports: Migraines Psychiatric History: Reports: Anxiety Endocrine/Metabolic History: Reports: Obesity/BMI 30+ Hematologic History: Reports: None Immunologic History: Reports: None Oncologic (Cancer) History: Reports: None Dermatologic History: Reports: None - Infectious Disease History Infectious Disease History: Reports: Chicken Pox, Other (See Below) Other Infectious Disease History: 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 - Past Surgical History Head Surgeries/Procedures: Reports: None HEENT Surgical History: Reports: None Cardiovascular Surgical History: Reports: None Respiratory Surgical History: Reports: None GI Surgical History: Reports: Bariatric Procedure, Cholecystectomy, Other (See Below) Other GI Surgeries/Procedures: S/P GASTRIC BYPASS Female Surgical History: Reports: Breast Biopsy Endocrine Surgical History: Reports: None Neurological Surgical History: Reports: None Musculoskeletal Surgical History: Reports: Other (See Below) Other Musculoskeletal Surgeries/Procedures:: 5 surgeries on right foot Oncologic Surgical History: Reports: None Dermatological Surgical History: Reports: None Social & Family History - Family History Family Medical History: Noncontributory - Caffeine Use Caffeine Use: Reports: Soda Other Caffeine Use: MODERATE CANS OF SODA POP DAILY - Living Situation & Occupation Living situation: Reports: Single Occupation: Employed ED ROS GENERAL - Review of Systems Review Of Systems: Comprehensive ROS is negative, except as noted in HPI. ED EXAM - Physical Exam Exam: See Below Exam Limited By: No Limitations General Appearance: Alert, WD/WN, Mild Distress Eye Exam: Bilateral Eye: EOMI, Normal Inspection Ears: Normal External Exam, Hearing Grossly Normal Nose: Normal Inspection Throat/Mouth: Normal Inspection, Normal Voice, No Airway Compromise Head: Atraumatic, Normocephalic Neck: Normal Inspection, Supple, Non-Tender, Full Range of Motion Respiratory/Chest: No Respiratory Distress, Lungs Clear, Normal Breath Sounds, No Accessory Muscle Use, Chest Non-Tender Cardiovascular: Normal Peripheral Pulses, Regular Rate, Rhythm, No Edema, No Gallop, No JVD, No Murmur, No Rub GI/Abdominal Exam: Normal Bowel Sounds, Soft, Non-Tender, No Organomegaly, No Distention, No Abnormal Bruit, No Mass, Pelvis Stable Rectal Exam: Deferred Movement: Not Appreciated Back Exam: Normal Inspection, Full Range of Motion Extremities: Normal Inspection, Normal Range of Motion, Non-Tender, Normal Capillary Refill, No Pedal Edema Neurological: Alert, Oriented, CN II-XII Intact, Normal Cognition, Normal Gait, Normal Reflexes, No Motor/Sensory Deficits Psychiatric: Normal Affect, Normal Mood Skin Exam: Warm, Dry, Intact, Normal Color, No Rash Lymphatic: No Adenopathy Course - Vital Signs Last Recorded V/S: Last Vital Signs Temp 97.2 F 02/25/20 07:55 Pulse 106 H 02/25/20 07:55 Resp 18 02/25/20 07:55 BP 123/77 02/25/20 07:55 Pulse Ox 98 02/25/20 07:55 - Orders/Labs/Meds Orders: Active Orders 24 hr Category Date Time Status Peripheral IV Care [RC] . DIRECTED Care 02/25/20 08:04 Active Peripheral IV Insertion Adult [OM.PC] Stat Oth 02/25/20 08:03 Ordered Labs: Laboratory Tests 02/25/20 02/25/20 02/25/20 Range/Units 08:15 08:15 08:26 WBC 6.7 (5.0-10.0) 10^3/uL RBC 3.79 L (4.2-5.4) 10^6/uL Hgb 11.6 L (12.0-16.0) g/dL Hct 33.3 L (37.0-47.0) % MCV 87.9 D (80-100) fL MCH 30.6 (27.0-34.0) pg MCHC 34.8 (33.0-35.0) g/dL Plt Count 174 D (150-450) 10^3/uL Neut % (Auto) 70.3 (42.2-75.2) % Lymph % (Auto) 19.2 L (20.5-50.1) % [place] % (Auto) 8.0 (2-8) % Eos % (Auto) 2.2 (1.0-3.0) % Baso % (Auto) 0.3 (0.0-1.0) % Sodium 136 (136-145) mmol/L Potassium 3.4 L (3.5-5.1) mmol/L Chloride 103 (98-107) mmol/L Carbon Dioxide 23 (21-32) mmol/L Anion Gap 13.4 H (7-13) mEq/L BUN 5 L (7-18) mg/dL Creatinine 0.63 (0.55-1.02) mg/dL Est Cr Clr Drug Dosing 121.20 mL/min Estimated GFR (MDRD) > 60 BUN/Creatinine Ratio 7.9 (No establ ref range) Glucose 94 (74-99) mg/dL Calcium 8.6 (8.5-10.1) mg/dL Total Bilirubin 0.3 (0.2-1.0) mg/dL AST 10 L (15-37) U/L ALT 17 (14-59) U/L Alkaline Phosphatase 55 (46-116) U/L Total Protein 6.7 (6.4-8.2) g/dL Albumin 2.9 L (3.4-5.0) g/dL Globulin 3.8 Albumin/Globulin Ratio 0.76 Amylase 59 (25-115) U/L Lipase 64 L (73-393) U/L Urine Color Dark yellow (YELLOW) Urine Appearance Slightly cloudy (CLEAR) Urine pH 6.0 (5.0-9.0) Ur Specific [place] >= 1.030 (1.005-1.030) Urine Protein 30 H (NEGATIVE) Urine Glucose (UA) Negative (NEGATIVE) Urine Ketones >=160 H (NEGATIVE) Urine Occult Blood Negative (NEGATIVE) Urine Nitrite Negative (NEGATIVE) Urine Bilirubin Small H (NEGATIVE) Urine Urobilinogen 1.0 (0.2-1.0) mg/dL Ur Leukocyte Esterase Negative (NEGATIVE) Urine RBC Not seen /HPF Urine WBC 10-20 H (0-5/HPF) /HPF Ur Epithelial Cells Many H (NOT SEEN) /HPF Calcium Oxalate Crystal Moderate H (NOT SEEN) /HPF Urine Bacteria Many H (0-FEW/HPF) /HPF Urine Mucus Few H (NOT SEEN) /LPF Meds: Medications Discontinued Medications Generic Name Dose Route Start Last Admin Trade Name Freq PRN Reason Stop Dose Admin Sodium Chloride 1,000 mls @ 999 mls/hr 02/25/20 08:03 02/25/20 08:30 Normal Saline IV 02/25/20 09:03 999 mls/hr .BOLUS ONE Administration Sodium Chloride 1,000 mls @ 999 mls/hr 02/25/20 09:25 02/25/20 09:30 Normal Saline IV 02/25/20 10:25 999 mls/hr .BOLUS ONE Administration Metoclopramide HCl 10 mg 02/25/20 09:25 02/25/20 09:31 Reglan IVPUSH 02/25/20 09:26 10 mg ONETIME ONE Administration Ondansetron HCl 4 mg 02/25/20 08:03 02/25/20 08:30 Zofran IV 02/25/20 08:04 4 mg ONETIME ONE Administration Sodium Chloride 10 ml 02/25/20 08:03 02/25/20 08:15 Saline Flush FLUSH 10 ml ASDIRECTED PRN Administration Keep Vein Open Departure - Departure Time of Disposition: 10:35 Disposition: Home, Self-Care 01 Condition: Fair Clinical Impression: Vomiting Qualifiers: Weeks of gestation: 20 weeks Qualified Code(s): Z3A.20 - 20 weeks gestation of - Discharge Information *PRESCRIPTION DRUG MONITORING PROGRAM REVIEWED*: No *COPY OF PRESCRIPTION DRUG MONITORING REPORT IN PATIENT DESI: No Instructions: Nausea and Vomiting, Adult, [id number], Dehydration, Adult, [id number], Second Trimester of , [id number] Forms: ED Department Discharge Additional Instructions: Follow up with Dr. Mcmahon Continue to take Zofran and Reglan as needed as directed Small sips of water frequently Sepsis Event Note (ED) - Focused Exam Vital Signs: Vital Signs Temp Pulse Resp BP Pulse Ox 02/25/20 07:55 97.2 F 106 H 18 123/77 98 - My Orders Last 24 Hours: My Active Orders 02/25/20 08:03 Peripheral IV Insertion Adult [OM.PC] Stat 02/25/20 08:04 Peripheral IV Care [RC] . DIRECTED - Assessment/Plan Last 24 Hours: My Active Orders 02/25/20 08:03 Peripheral IV Insertion Adult [OM.PC] Stat 02/25/20 08:04 Peripheral IV Care [RC] . DIRECTED
[2020-02-25 08:45] LABS: ANION GAP 13.4 mEq/L (7-13); CHLORIDE,CL 103 mmol/L (98-107); SODIUM,NA 136 mmol/L (136-145)
[2020-02-25] MEDS ORDERED: Metoclopramide 10 MG/2 ML SDV IVPUSH ONE (09:25)
== END 2020-02-25 10:37 | disposition home or self-care (01) ==
LOC: DL.ED 07:40
DX: O21.9 Vomiting of pregnancy, unspecified (principal); O99.342 Other mental disorders complicating pregnancy, second trimester; F41.9 Anxiety disorder, unspecified; O99.212 Obesity complicating pregnancy, second trimester; E66.9 Obesity, unspecified; O99.352 Diseases of the nervous system complicating pregnancy, second trimester; G43.909 Migraine, unspecified, not intractable, without status migrainosus; Z79.899 Other long term (current) drug therapy; Z68.38 Body mass index [BMI] 38.0-38.9, adult; Z3A.20 20 weeks gestation of pregnancy
CPT/HCPCS: 36415; 80053; 81001; 82150; 83690; 85025; 96361; 96374; 96375; 99284; J2405; J2765; J7030

== ENCOUNTER 2020-02-26 09:53 | Observation (INO) | payer OTHER ==
[2020-02-26] MEDS ORDERED: Lactated Ringers 1,000 ML IV ONE (10:11)
[2020-02-26] MEDS: Ondansetron 4 MG/2 ML SDV IVPUSH PRN ×2 (11:26→20:25)
[2020-02-26] MEDS: cefTRIAXone 1 GM in Sodium Chloride 0.9% 50 ML IV SCH (13:24)
[2020-02-26] MEDS: Lactated Ringers 1,000 ML IV SCH ×2 (14:06→22:08)
[2020-02-26] MEDS: Metoclopramide 10 MG/2 ML SDV IVPUSH SCH ×2 (14:06→21:55)
[2020-02-26] MEDS ORDERED: hydrOXYzine HCl 25 MG Tab PO ONE (22:00)
[2020-02-26] MEDS: Buprenorphine 8 MG Tab.SL SL SCH (22:01)
[2020-02-27] MEDS: Metoclopramide 10 MG/2 ML SDV IVPUSH SCH ×2 (08:15→13:33)
[2020-02-27] MEDS: Buprenorphine 8 MG Tab.SL SL SCH ×3 (09:21→13:37)
[2020-02-27] MEDS: cefTRIAXone 1 GM in Sodium Chloride 0.9% 50 ML IV SCH (12:34)
--- NOTE | 2020-02-29 21:23 | PCM.LDHP ---
L&D History of Present Illness - General Date of Service: 02/26/20 Admit Problem/Dx: Patient Status Order with Admit Dx/Problem 02/26/20 10:09 Patient Status [ADT] Routine Admission Diagnosis/Problem Admission Diagnosis/Problem UTI, Urinary tract infection in Source of Information: Patient History Limitations: Reports: No Limitations - History of Present Illness Introduction:: 34-year-old at 19w1d admitted from clinic for dehydration secondary to vomiting and UTI in . Patient has had vomiting off and on for her entire . She states she vomited frequently over the last 3-4 days. She was seen in the ED yesterday, given 2 liters of fluids and diagnosed with a UTI. Patient is unsure if the antibiotic will be effective as she has vomited several times over the past 24 hours. Baby is moving. No fevers, chills or back pain. - Related Data Allergies/Adverse Reactions: Allergies Allergy/AdvReac Type Severity Reaction Status Date / Time doxycycline Allergy Rash Verified 02/26/20 11:54 Home Medications: Home Meds Gabapentin [Neurontin] 300 mg PO TID 02/21/19 [History] Sertraline [Zoloft] 150 mg PO DAILY 02/21/19 [History] busPIRone [Buspar] 10 mg PO BID 02/21/19 [History] Cyanocobalamin/Folic AC/Vit B6 [Folic Acid-Vit B6-Vit B12] 1 tab PO DAILY 08/28/19 [History] Propranolol [Inderal LA] 80 mg PO DAILY 08/28/19 [History] Prenat 115/Iron Fum/Folic/Dss [ 19 Tablet] 1 tab PO DAILY 02/25/20 [History] Butalb/Acetaminophen/Caffeine [Fioricet 50-300-40 mg Capsule] 1 tab PO DAILY PRN 02/26/20 [History] Cyclobenzaprine [Flexeril] 10 mg PO Q8HR PRN 02/26/20 [History] Famotidine [Pepcid] 40 mg PO BID 02/26/20 [History] Metoclopramide HCl [Reglan] 10 mg PO TIDMEALS 02/26/20 [History] Ondansetron [Zofran] 8 mg PO Q8HR PRN 02/26/20 [History] Pramipexole [Mirapex] 0.5 mg PO BEDTIME 02/26/20 [History] buprenorphine HCL [Buprenorphine HCl] 4 mg SL TID 02/26/20 [History] Past Medical History HEENT History: Reports: Impaired Vision Other HEENT History: wears glasses Cardiovascular History: Reports: Blood Clots/VTE/DVT, Other (See Below) Other Cardiovascular History: RIGHT LEG BLOOD CLOT 2007 Respiratory History: Reports: None Gastrointestinal History: Reports: Chronic Constipation Genitourinary History: Reports: None 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: , 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 Other OB/BYN History: Hyperemeis during Musculoskeletal History: Reports: Other (See Below) Other Musculoskeletal History: CHRONIC RIGHT FOOT PAIN Neurological History: Reports: Migraines Psychiatric History: Reports: Anxiety Endocrine/Metabolic History: Reports: Obesity/BMI 30+ Hematologic History: Reports: None Immunologic History: Reports: None Oncologic (Cancer) History: Reports: None Dermatologic History: Reports: None - Infectious Disease History Infectious Disease History: Reports: Other (See Below) Other Infectious Disease History: [place] - Past Surgical History Head Surgeries/Procedures: Reports: None HEENT Surgical History: Reports: None Cardiovascular Surgical History: Reports: None Respiratory Surgical History: Reports: None GI Surgical History: Reports: Bariatric Procedure, Cholecystectomy, Other (See Below) Other GI Surgeries/Procedures: S/P GASTRIC BYPASS Female Surgical History: Reports: Breast Biopsy Endocrine Surgical History: Reports: None Neurological Surgical History: Reports: None Musculoskeletal Surgical History: Reports: Other (See Below) Other Musculoskeletal Surgeries/Procedures:: 5 surgeries on right foot Oncologic Surgical History: Reports: None Dermatological Surgical History: Reports: None Social & Family History - Family History Family Medical History: Noncontributory - Tobacco Use Smoking Status *Q: Never Smoker - Caffeine Use Caffeine Use: Reports: Soda Other Caffeine Use: MODERATE CANS OF SODA POP DAILY - Recreational Drug Use Recreational Drug Use: No - Living Situation & Occupation Living situation: Reports: Single Occupation: Employed H&P Review of Systems - Review of Systems: Review Of Systems: See Below General: Reports: Weakness, Fatigue HEENT: Reports: No Symptoms Pulmonary: Reports: No Symptoms Cardiovascular: Reports: No Symptoms Gastrointestinal: Reports: Decreased Appetite, Nausea, Vomiting Genitourinary: Reports: No Symptoms Musculoskeletal: Reports: No Symptoms Skin: Reports: No Symptoms Neurological: Reports: No Symptoms L&D Exam - Exam Exam: See Below - Vital Signs Vital Signs: Last Vital Signs Temp 36.4 C 02/27/20 12:00 Pulse 98 02/27/20 12:00 Resp 18 02/27/20 12:00 BP 126/68 02/27/20 12:00 Pulse Ox 100 02/27/20 12:00 Weight: 118.342 kg - OB Specific Heart Tones per Min: 140 - Exam General: Alert, Other (Ill appearing) Lungs: Clear to Auscultation, Normal Respiratory Effort Cardiovascular: Regular Rate, Regular Rhythm GI/Abdominal Exam: Soft, Non-Tender Extremities: No Pedal Edema Skin: Warm, Dry, Intact - Problem List (1) UTI in SNOMED Code(s): 738431307 ICD Code: O23.40 - UNSP INFECTION OF URINARY TRACT IN , UNSP TRIMESTER Status: Acute (2) Vomiting affecting SNOMED Code(s): 22359611, 441065950 ICD Code: O21.9 - VOMITING OF , UNSPECIFIED Status: Acute Problem List Initiated/Reviewed/Updated: Yes Assessment/Plan Comment:: 24-year-old at 19w1d with nausea/vomiting in and UTI 1. Admit for observation 2. Will give 1 liter LR bolus followed by infusion at 125 ml/hr 3. Rocephin 1 gram every 24 hours for UTI 4 IV Reglan and zofran PRN for nausea/vomiting 5. Anticipate discharge 02/27/2020 Iqra Mcmahon MD
--- NOTE | 2020-02-29 21:27 | PCM.DCSUM1 ---
Discharge Summary - Hospital Course Free Text/Narrative:: 34-year-old at 39w2d admitted with nausea/vomiting and UTI in Diagnosis: Stroke: No - Discharge Data Discharge Date: 02/27/20 Discharge Disposition: Home, Self-Care 01 Condition: Good - Referral to Home Health Primary Care Physician: Adriana Mcmahon MD - Discharge Diagnosis/Problem(s) (1) UTI in SNOMED Code(s): 555220508 ICD Code: O23.40 - UNSP INFECTION OF URINARY TRACT IN , UNSP TRIMESTER Status: Acute (2) Vomiting affecting SNOMED Code(s): 58534222, 234640924 ICD Code: O21.9 - VOMITING OF , UNSPECIFIED Status: Acute - Patient Summary/Data Hospital Course: Please see subjective section - Discharge Plan Home Medications: Home Meds Gabapentin [Neurontin] 300 mg PO TID 02/21/19 [History] Sertraline [Zoloft] 150 mg PO DAILY 02/21/19 [History] busPIRone [Buspar] 10 mg PO BID 02/21/19 [History] Cyanocobalamin/Folic AC/Vit B6 [Folic Acid-Vit B6-Vit B12] 1 tab PO DAILY 08/28/19 [History] Propranolol [Inderal LA] 80 mg PO DAILY 08/28/19 [History] Prenat 115/Iron Fum/Folic/Dss [ 19 Tablet] 1 tab PO DAILY 02/25/20 [History] Butalb/Acetaminophen/Caffeine [Fioricet 50-300-40 mg Capsule] 1 tab PO DAILY PRN 02/26/20 [History] Cyclobenzaprine [Flexeril] 10 mg PO Q8HR PRN 02/26/20 [History] Famotidine [Pepcid] 40 mg PO BID 02/26/20 [History] Metoclopramide HCl [Reglan] 10 mg PO TIDMEALS 02/26/20 [History] Ondansetron [Zofran] 8 mg PO Q8HR PRN 02/26/20 [History] Pramipexole [Mirapex] 0.5 mg PO BEDTIME 02/26/20 [History] buprenorphine HCL [Buprenorphine HCl] 4 mg SL TID 02/26/20 [History] Patient Handouts: Morning Sickness, [id number], and Urinary Tract Infection Referrals: Iqra Mcmahon MD [Primary Care Provider] - (Keep scheduled appointment with Dr. Mcmahon. ) - Discharge Summary/Plan Comment DC Time >30 min.: No Discharge Summary/Plan Comment: Discharge home today. Follow-up for next OB visit as scheduled or sooner as needed. - General Info Date of Service: 02/27/20 Subjective Update: Patient is feeling better this morning. Was able to sleep after being given some Vistaril--feels this works better than her trazodone. No vomiting for almost 12 hours. Tolerated lunch Functional Status: Denies: New Symptoms - Review of Systems General: Reports: Weakness HEENT: Reports: No Symptoms Pulmonary: Reports: No Symptoms Cardiovascular: Reports: No Symptoms Gastrointestinal: Reports: Decreased Appetite Genitourinary: Reports: No Symptoms Musculoskeletal: Reports: No Symptoms Skin: Reports: No Symptoms Neurological: Reports: No Symptoms - Patient Data Vitals - Most Recent: Last Vital Signs Temp 36.4 C 02/27/20 12:00 Pulse 98 02/27/20 12:00 Resp 18 02/27/20 12:00 BP 126/68 02/27/20 12:00 Pulse Ox 100 02/27/20 12:00 Weight - Most Recent: 118.342 kg Med Orders - Current: Current Medications Discontinued Medications Buprenorphine (Subutex) 4 mg SL TID [facility] Last Admin: 02/27/20 09:21 Dose: Not Given Documented by: Buprenorphine (Subutex) 4 mg SL TID@1100,1400,1700 [facility] Last Admin: 02/27/20 13:37 Dose: Not Given Documented by: Hydroxyzine HCl (Atarax) 100 mg PO ONETIME ONE Stop: 02/26/20 22:01 Last Admin: 02/26/20 21:54 Dose: 100 mg Documented by: Ceftriaxone Sodium 1 gm/ (Sodium Chloride) 50 mls @ 100 mls/hr IV Q24H [facility] Last Admin: 02/27/20 12:34 Dose: 100 mls/hr Documented by: Lactated Ringer's (Ringers, Lactated) 1,000 mls @ 125 mls/hr IV ASDIRECTED [facility] Last Infusion: 02/27/20 09:20 Dose: Infused Documented by: Lactated Ringer's (Ringers, Lactated) 1,000 mls @ 999 mls/hr IV .BOLUS ONE Stop: 02/26/20 11:11 Last Infusion: 02/26/20 14:08 Dose: Infused Documented by: Metoclopramide HCl (Reglan) 10 mg IVPUSH Q8HR [facility] Last Admin: 02/27/20 13:33 Dose: 10 mg Documented by: Ondansetron HCl (Zofran) 4 mg IVPUSH Q8H PRN PRN Reason: Nausea/Vomiting Last Admin: 02/26/20 20:25 Dose: 4 mg Documented by: - Exam General: Reports: Alert, Oriented Lungs: Reports: Clear to Auscultation, Normal Respiratory Effort Cardiovascular: Reports: Regular Rate, Regular Rhythm, No Murmurs GI/Abdominal Exam: Soft, Non-Tender
== END 2020-02-27 14:40 | disposition home or self-care (01) ==
LOC: DL.MS 10:09
PROVIDERS: ADMIT Family Medicine; ATTEND Family Medicine
DX: O23.43 Unspecified infection of urinary tract in pregnancy, third trimester (principal); O21.2 Late vomiting of pregnancy; O09.523 Supervision of elderly multigravida, third trimester; O99.343 Other mental disorders complicating pregnancy, third trimester; F32.9 Major depressive disorder, single episode, unspecified; Z88.8 Allergy status to other drugs, medicaments and biological substances; Z79.899 Other long term (current) drug therapy; Z3A.39 39 weeks gestation of pregnancy
CPT/HCPCS: 96361; 96365; 96375; 96376; A9270; G0378; G0379; J0696; J2405; J2765; J7050; J7120

== ENCOUNTER 2020-12-13 08:19 | Emergency (ER) | payer OTHER ==
[2020-12-13] MEDS ORDERED: Gentamicin 0.3% Ophth Soln 5 ML Bottle EYERT ONE (08:46)
--- NOTE | 2020-12-13 08:51 | EDM.PDOC ---
<Sven Cowart Jen - Last Filed: 12/13/20 08:55> ED HPI GENERAL MEDICAL PROBLEM - General Chief Complaint: ENT Problem Stated Complaint: RIGHT EYE HURTS IRRITATED RED/THINKS HAS PINKEYE Time Seen by Provider: 12/13/20 08:30 Source of Information: Reports: Patient History Limitations: Reports: No Limitations - History of Present Illness INITIAL COMMENTS - FREE TEXT/NARRATIVE: 35 y/o F c/o pink eye in her R eye. Pt states she woke up yesterday morning with mattering and eye drainage. Has had pink eye 2 in the last three months. Reports no visual changes. Denies fever, cough, chills, drugs, etoh. Duration: Day(s): Location: Reports: Other (r eye) Severity: Mild Improves with: Reports: None Worsens with: Reports: None - Related Data Allergies Allergy/AdvReac Type Severity Reaction Status Date / Time doxycycline Allergy Rash Verified 12/13/20 08:24 Home Meds: Home Meds Gabapentin [Neurontin] 300 mg PO TID 02/21/19 [History] Sertraline [Zoloft] 150 mg PO DAILY 02/21/19 [History] busPIRone [Buspar] 10 mg PO BID 02/21/19 [History] Cyanocobalamin/Folic AC/Vit B6 [Folic Acid-Vit B6-Vit B12] 1 tab PO DAILY 08/28/19 [History] Propranolol [Inderal LA] 80 mg PO DAILY 08/28/19 [History] Prenat 115/Iron Fum/Folic/Dss [ 19 Tablet] 1 tab PO DAILY 02/25/20 [History] Butalb/Acetaminophen/Caffeine [Fioricet 50-300-40 mg Capsule] 1 tab PO DAILY PRN 02/26/20 [History] Cyclobenzaprine [Flexeril] 10 mg PO Q8HR PRN 02/26/20 [History] Famotidine [Pepcid] 40 mg PO BID 02/26/20 [History] Metoclopramide HCl [Reglan] 10 mg PO TIDMEALS 02/26/20 [History] Ondansetron [Zofran] 8 mg PO Q8HR PRN 02/26/20 [History] Pramipexole [Mirapex] 0.5 mg PO BEDTIME 02/26/20 [History] buprenorphine HCL [Buprenorphine HCl] 4 mg SL TID 02/26/20 [History] Past Medical History HEENT History: Reports: Impaired Vision Other HEENT History: wears glasses Cardiovascular History: Reports: Blood Clots/VTE/DVT, Other (See Below) Other Cardiovascular History: RIGHT LEG BLOOD CLOT 2007 Respiratory History: Reports: None Gastrointestinal History: Reports: Chronic Constipation Genitourinary History: Reports: None [employer] History: Reports: , Spontaneous Other [employer] History: Hyperemeis during Musculoskeletal History: Reports: Other (See Below) Other Musculoskeletal History: CHRONIC RIGHT FOOT PAIN Neurological History: Reports: Migraines Psychiatric History: Reports: Anxiety Endocrine/Metabolic History: Reports: Obesity/BMI 30+ Hematologic History: Reports: None Immunologic History: Reports: None Oncologic (Cancer) History: Reports: None Dermatologic History: Reports: None - Infectious Disease History Infectious Disease History: Reports: Other (See Below) Other Infectious Disease History: [place] - Past Surgical History Head Surgeries/Procedures: Reports: None HEENT Surgical History: Reports: None Cardiovascular Surgical History: Reports: None Respiratory Surgical History: Reports: None GI Surgical History: Reports: Bariatric Procedure, Cholecystectomy, Other (See Below) Other GI Surgeries/Procedures: S/P GASTRIC BYPASS Female Surgical History: Reports: Breast Biopsy Endocrine Surgical History: Reports: None Neurological Surgical History: Reports: None Musculoskeletal Surgical History: Reports: Other (See Below) Other Musculoskeletal Surgeries/Procedures:: 5 surgeries on right foot Oncologic Surgical History: Reports: None Dermatological Surgical History: Reports: None Social & Family History - Family History Family Medical History: No Pertinent Family History - Tobacco Use Tobacco Use Status *Q: Never Tobacco User Second Hand Smoke Exposure: No - Caffeine Use Caffeine Use: Reports: None Other Caffeine Use: MODERATE CANS OF SODA POP DAILY - Recreational Drug Use Recreational Drug Use: No - Living Situation & Occupation Living situation: Reports: Single Occupation: Employed ED ROS ENT - Review of Systems Review Of Systems: Comprehensive ROS is negative, except as noted in HPI. ED EXAM, ENT - Physical Exam Exam: See Below General Appearance: Alert, WD/WN, No Apparent Distress Eye Exam: Right Eye: Other (R conjuctival injection with mattering and drainage) Respiratory/Chest: No Respiratory Distress, Lungs Clear, Normal Breath Sounds, No Accessory Muscle Use, Chest Non-Tender Cardiovascular: Normal Peripheral Pulses, Regular Rate, Rhythm, No Edema, No Gallop, No JVD, No Murmur, No Rub Departure - Departure Time of Disposition: 08:47 Disposition: Home, Self-Care 01 Condition: Good Clinical Impression: [place] eye Qualifiers: Laterality: right Qualified Code(s): H10.021 - Other mucopurulent conjunctivitis, right eye - Discharge Information *PRESCRIPTION DRUG MONITORING PROGRAM REVIEWED*: Not Applicable *COPY OF PRESCRIPTION DRUG MONITORING REPORT IN PATIENT DESI: Not Applicable Instructions: Bacterial Conjunctivitis, Adult, [id number] Forms: ED Department Discharge Additional Instructions: Use the Gentamicin drops one drop 4 times a day for 5 days into right eye. If symptoms do not resolve within 5 days contact your primary care provider or return to the ER. Sepsis Event Note (ED) - Evaluation Sepsis Screening Result: No Definite Risk <Ganga Rodriguez - Last Filed: 12/13/20 09:09> Course - Vital Signs Last Recorded V/S: Last Vital Signs Temp 98.4 F 12/13/20 08:27 Pulse 100 12/13/20 08:27 Resp 16 12/13/20 08:27 BP 140/85 12/13/20 08:27 Pulse Ox 98 12/13/20 08:27 - Orders/Labs/Meds Meds: Medications Discontinued Medications Generic Name Dose Route Start Last Admin Trade Name Reji PRN Reason Stop Dose Admin Gentamicin Sulfate 1 ml 12/13/20 08:46 12/13/20 09:08 Gentamicin 0.3% Ophth Soln 5 Ml Bottle EYERT 12/13/20 08:47 1 ml ONETIME ONE Administration - Re-Assessments/Exams Free Text/Narrative Re-Assessment/Exam: 12/13/20 I personally performed or re-performed the physical examination and medical decision making. I have verified all student documentation or findings, including history, physical exam and/or medical decision making. Sepsis Event Note (ED) - Focused Exam Vital Signs: Vital Signs Temp Pulse Resp BP Pulse Ox 12/13/20 08:27 98.4 F 100 16 140/85 98
== END 2020-12-13 09:08 | disposition home or self-care (01) ==
LOC: DL.ED 08:19
DX: H10.021 Other mucopurulent conjunctivitis, right eye (principal); E66.9 Obesity, unspecified; Z68.41 Body mass index [BMI] 40.0-44.9, adult; Z88.1 Allergy status to other antibiotic agents
CPT/HCPCS: 99282; A9270; 99283